=== PATIENT | female | born 1950 | race Caucasian/White ===

== ENCOUNTER → 2020-05-29 09:48 | Outpatient (CLI) | payer MEDICARE, SELFPAY ==
--- NOTE | ~2020-05-29 | MR_ITS ---
EXAMINATION: MR lumbar spine wo con EXAM DATE: 05/29/2020 10:50 INDICATION: Low back pain, bilateral leg pain. Left leg numbness. TECHNIQUE: Multi-sequential, multiplanar MR images of the lumbar spine were obtained without contrast . Sagittal T1, T2, T2 fat saturation images. Axial T2 weighted images. Comparison is made to prior examination from 06/10/2019. FINDINGS: There is 2 mm anterolisthesis L4 on L5. The vertebral bodies are otherwise aligned. Vertebr al body and disc heights are well-maintained. The conus medullaris terminates at the L1/2 level and h as normal signal intensity and morphology. There are no suspicious marrow signal abnormalities. Para spinal soft tissue is unremarkable. Level by level evaluation: T11-12: There is a minimal diffuse disc bulge. Facet arthropathy: Mild. Neural foraminal stenosis: No stenosis. Central canal stenosis: No stenosis. T12-L1: Disc does not extend beyond the endplate margin. Facet arthropathy: None. Neural foraminal stenosis: No stenosis. Central canal stenosis: No stenosis. L1-L2: Disc does not extend beyond the endplate margin. Facet arthropathy: Minimal. Neural foraminal stenosis: No stenosis. Central canal stenosis: No stenosis. L2-L3: There is a mild diffuse disc bulge. Facet arthropathy: Mild. Neural foraminal stenosis: No stenosis. Central canal stenosis: No stenosis. L3-L4: There is a mild diffuse disc bulge. Facet arthropathy: Minimal bilateral. Neural foraminal stenosis: No stenosis. Central canal stenosis: No stenosis. L4-L5: There is a mild diffuse disc bulge. Facet arthropathy: Mild to moderate. Neural foraminal stenosis: Mild bilateral. Central canal stenosis: Mild. L5-S1: There is a mild diffuse disc bulge. Facet arthropathy: Mild. Neural foraminal stenosis: No stenosis. Central canal stenosis: No stenosis. Difficult to appreciate any significant interval change compared to prior study. IMPRESSION: 1. Mild lumbar spondylosis. Reviewed, dictated and finalized at location B. IMPRESSION: 1. Mild lumbar spondylosis.
== END ==
PROVIDERS: PCP Family Medicine Adolescent Medicine; Visit Provider Nurse Practitioner Adult Health
DX: M47.26 Other spondylosis with radiculopathy, lumbar region (principal)
CPT/HCPCS: 72148

== ENCOUNTER 2020-07-09 00:47 | Outpatient (CLI) | payer MEDICARE, SELFPAY ==
[2020-07-09 18:01] LABS: SARS-CoV-2 RNA PCR Negative
== END 2020-07-09 00:48 | disposition home or self-care (01) ==
LOC: ANHCOVIDDT 00:47
PROVIDERS: PCP Family Medicine Adolescent Medicine; Visit Provider Internal Medicine Gastroenterology
DX: Z01.812 Encounter for preprocedural laboratory examination (principal); Z20.828 Contact with and (suspected) exposure to other viral communicable diseases
CPT/HCPCS: 87635; C9803; U0003

== ENCOUNTER 2020-07-11 01:42 | Day surgery (SDC) | payer MEDICARE, SELFPAY ==
[2020-07-04 14:55] VITALS: BMI 29.3
[2020-07-11 07:20] VITALS: BP 133/57; PULSE 66; RESP 16; TEMP 36.2; O2SAT 99
[2020-07-11] MEDS: LACTATED RINGERS 1,000 ML 150 ML IV CONT (07:48)
--- NOTE | 2020-07-11 08:03 | WPDGICN ---
Assessment and Plan Assessment and plan (1) Family history of colon cancer in mother: Code(s): Z80.0 - Family history of malignant neoplasm of digestive organs Status: Acute Assessment and Plan: Patient's mother has had colon cancer patient's.brother has had colon polyps. Plan is for surveillance colonoscopy now on a 5 year intervals in the future. (2) History of diverticulitis: Code(s): Z87.19 - Personal history of other diseases of the digestive system Status: Acute Assessment and Plan: Patient has a history of diverticulitis with fistula involving the uterus 2 years ago requiring surgical resection. currently healed. would recommend high-fiber diet this will be evaluated at time of endoscopy as well. GI Consult Note Consult date/time: 07/11/20 08:03 HPI: Malena Walters is a 69 year old female Seen in evaluation at the request of Dr. Saul exam room in period patient presents for neoplasia screening. Patient's current weight appetite bowel movements are normal. She denies abdominal pain. She has had no blood in her stools. Family history is significant that her mother had colon cancer. A sister has had colon polyps. Patient's recent history is significant that 2 years ago she under had diverticulitis with fistula to the uterus causing sigmoid resection and ultimate hysterectomy as well. She has recovered from this although does note occasional incisional pain or bowel habits are returned to normal. Review of Systems Review of Systems: All systems reviewed & are unremarkable except as noted in HPI and below PMFSH Past Medical History Medical History GERD (gastroesophageal reflux disease) History of diverticulitis History of stomach ulcers HTN (hypertension) Thyroid disease Surgical History Surgical History History of colectomy Family History Family History Mother Colon cancer Father Emphysema/COPD Sibling Heart disease Unknown Diabetes mellitus Social History Social History Smoking packs per day: 1 Smoking cigarettes per day: 20.0 Years smoked: 50 Smoking pack-years: 50.00 Smoking status: Former smoker Smoking end date: 10/12/15 Alcohol intake: never Living arrangements: alone Gender identity (if verbalized by the patient): Female Spiritual care concerns: No Meds Home Medications and Allergies Home Medications Medication Instructions Recorded Confirmed Type amlodipine 5 mg tablet 5 mg PO DAILY 10/19/19 07/11/20 History aspirin 81 mg tablet,delayed 81 mg PO DAILY 10/19/19 07/11/20 History release levothyroxine 75 mcg capsule 75 mcg PO DAILY 10/19/19 07/11/20 History pantoprazole 20 mg tablet,delayed 20 mg PO QAM 10/19/19 07/11/20 History release psyllium seed (sugar) 1 tbsp PO DAILY 10/19/19 07/11/20 History baclofen 20 mg PO HS 07/04/20 07/11/20 History Allergies Allergy/AdvReac Type Severity Reaction Status Date / Time gabapentin AdvReac Rash Verified 07/11/20 07:22 Vital Signs Vital Signs - 24 hr 07/11/20 07:20 Temperature 97.2 F L Pulse Rate 66 Respiratory Rate 16 Blood Pressure 133/57 L Pulse Oximetry 99 Exam Narrative: Exam Narrative: Physical exam reveals patient to be alert. Vital signs stable. HEENT exam unremarkable. Lungs are clear to auscultation and percussion. Heart is without murmur or extra sounds. Abdominal exam bowel sounds are present soft nontender with no organomegaly. Digital external rectal exam is normal.
--- NOTE | 2020-07-11 08:06 | WPDANESEPPF ---
Anes - Initial Pre Proc Eval Procedure: Operation Date: 07/11/20 08:30 Proposed Procedures p Screening Colonoscopy - Francisco Javier Arreaga MD Date/Time: 07/11/20 08:06 Surgeon: Francisco Javier Arreaga MD Pre Op Diagnosis: Family Hx of Colon CA Patient Data Age: 69 Gender: F Height: 4 ft 11 in Weight: 64.2 kg Last Vital Signs Temp 36.2 C L 07/11/20 07:20 Pulse 66 07/11/20 07:20 Resp 16 07/11/20 07:20 BP 133/57 L 07/11/20 07:20 Pulse Ox 99 07/11/20 07:20 Allergies Allergy/AdvReac Type Severity Reaction Status Date / Time gabapentin AdvReac Rash Verified 07/11/20 07:22 Home Medications Medication Instructions Recorded Confirmed Type amlodipine 5 mg tablet 5 mg PO DAILY 10/19/19 07/11/20 History aspirin 81 mg tablet,delayed 81 mg PO DAILY 10/19/19 07/11/20 History release levothyroxine 75 mcg capsule 75 mcg PO DAILY 10/19/19 07/11/20 History pantoprazole 20 mg tablet,delayed 20 mg PO QAM 10/19/19 07/11/20 History release psyllium seed (sugar) 1 tbsp PO DAILY 10/19/19 07/11/20 History baclofen 20 mg PO HS 07/04/20 07/11/20 History Patient hx anesthesia problems: none Family hx anesthesia problems: none PMFSH Past Medical History Medical History GERD (gastroesophageal reflux disease) History of diverticulitis History of stomach ulcers HTN (hypertension) Thyroid disease Surgical History Surgical History History of colectomy Family History Family History Mother Colon cancer Father Emphysema/COPD Sibling Heart disease Unknown Diabetes mellitus Social History Social History Smoking packs per day: 1 Smoking cigarettes per day: 20.0 Years smoked: 50 Smoking pack-years: 50.00 Smoking status: Former smoker Smoking end date: 10/12/15 Alcohol intake: never Living arrangements: alone Gender identity (if verbalized by the patient): Female Spiritual care concerns: No Anes - Eval Final PreProcedure Day of Procedure 07/11/20 08:06 Patient weight: overweight Heart: regular rate and rhythm Lungs: clear to auscultation Airway: Mallampati scale class II Neurological: alert and oriented Last oral intake: >/= 8 hours ASA classification: III Emergent: no Anesthetic plan: proceed Anesthesia type and monitoring: general GIVS and standard monitoring Informed Consent: The patient's anesthetic plan and its attendant risks and benefits were discussed with the patient/family/POA. Questions were solicited and answers provided to the satisfaction of the patient/family/POA.
[2020-07-11 08:55] VITALS: BP 113/44; PULSE 56; RESP 16; O2SAT 98
[2020-07-11 09:05] VITALS: BP 139/67; PULSE 54; RESP 16; O2SAT 98
[2020-07-11 09:15] VITALS: BP 128/70; PULSE 58; RESP 16; O2SAT 98
== END 2020-07-11 09:34 | disposition home or self-care (01) ==
PROVIDERS: PCP Family Medicine Adolescent Medicine; Visit Provider Internal Medicine Gastroenterology
PROC: 0DJD8ZZ Inspection of Lower Intestinal Tract, Via Natural or Artificial Opening Endoscopic (ICD-10-PCS; CPT 45378; principal; 2020-07-11 08:30)
DX: Z12.11 Encounter for screening for malignant neoplasm of colon (principal); Z80.0 Family history of malignant neoplasm of digestive organs; Z87.19 Personal history of other diseases of the digestive system; K21.9 Gastro-esophageal reflux disease without esophagitis; I10 Essential (primary) hypertension; E07.9 Disorder of thyroid, unspecified; Z87.891 Personal history of nicotine dependence; Z90.49 Acquired absence of other specified parts of digestive tract; K64.8 Other hemorrhoids; Z98.0 Intestinal bypass and anastomosis status
CPT/HCPCS: G0105; J2704; J7120

== ENCOUNTER 2020-09-26 16:07 | Outpatient (CLI) | payer MEDICARE, SELFPAY ==
--- NOTE | ~2020-09-26 | CT_ITS ---
EXAMINATION: CT abdomen pelvis wo con DATE: 09/26/2020 16:36 INDICATION: Abdominal aortic aneurysm TECHNIQUE: Computed tomography (CT) of the abdomen and pelvis was performed without intravenous contr ast. Automated exposure control and iterative reconstruction technique were employed. Exam dose: 403 .74 mGy-cm total exam DLP. COMPARISON: 10/13/2019 CTA abdomen pelvis FINDINGS: Mild discoid atelectasis or scarring of the lingula and left lower lobe. Minimal infiltrate or atelectasis in the dependent right lower lobe. The included lower lung zones are clear of infiltr ate or consolidation otherwise. Normal heart size. Trace pericardial fluid. No pleural effusion. The liver, gallbladder, bile ducts, spleen, pancreas, adrenal glands and kidneys are unremarkable on this limited noncontrast examination. There is a fusiform infrarenal abdominal aortic aneurysm measuring up to approximately 4.2 cm maximal diameter, compared to 4.1 cm on 10/13/2019. There is extensive calcification of the abdominal aorta and particularly iliac arteries in addition t o mild bilateral renal artery calcification. No intraperitoneal or retroperitoneal or pelvic mass lesion or adenopathy or ascites is detected. Duodenal diverticulum is again noted. Normal appendix. No evidence of appendicitis. There is a suture line of the sigmoid colon. No bowel obstruction, bowel wall thickening, pneumatosis or intraperitoneal free air. The urinary bladder is evacuated. Status post hysterectomy. Diffuse osteopenia. No suspicious osteolytic or osteoblastic lesions. IMPRESSION: Fusiform infrarenal abdominal aortic aneurysm measuring up to approximately 4.2 cm maxim al diameter, compared to 4.1 cm on 10/13/2019 Reviewed, dictated and finalized at Location [facility]. Reviewed, dictated and finalized at location B. RADIAL DRILL PRESS SET UP OPERATOR IMPRESSION: Fusiform infrarenal abdominal aortic aneurysm measuring up to appr oximately 4.2 cm maximal diameter, compared to 4.1 cm on 10/13/2019
== END 2020-09-26 16:08 | disposition home or self-care (01) ==
PROVIDERS: PCP Family Medicine Adolescent Medicine; Visit Provider Specialist
DX: I71.3 Abdominal aortic aneurysm, ruptured (principal)
CPT/HCPCS: 74176

== ENCOUNTER 2020-10-21 17:25 | Inpatient (IN) | payer MEDICARE, SELFPAY ==
[2020-10-21] VITALS (8 sets, daily range): BP systolic 125–143; BP diastolic 55–83; PULSE 67–78; RESP 18–28; TEMP 37.6–38.8; O2SAT 90–98
--- NOTE | ~2020-10-21 | XR_ITS ---
EXAMINATION: XR chest 1V portable DATE: 10/21/2020 18:01 INDICATION: Cough. Chest pain. COVID-19 positive. TECHNIQUE: A single frontal view of the chest was obtained. COMPARISON: Chest 2 views 03/26/2015 FINDINGS: There are patchy airspace opacities in all lung zones bilaterally. No pleural effusion or p neumothorax. The heart size is normal. IMPRESSION: 1. Diffuse lung disease, consistent with COVID-19 pneumonia. Reviewed, dictated and finalized at location A. TELLER
--- NOTE | ~2020-10-21 | CT_ITS ---
EXAMINATION: CTA chest PE protocol DATE: 10/21/2020 20:00 INDICATION: Shortness of breath. COVID-19 pneumonia. TECHNIQUE: Computed tomography angiography (CTA) of the chest was performed with 100 mL Omnipaque-350 intravenous contrast timed to evaluate the pulmonary arteries. Coronal maximum intensity projection 3D-reconstructions were created by the technologist. Automated exposure control and iterative reconst ruction technique were employed. The dose-length product was 270.90 mGy-cm. COMPARISON: CT abdomen and pelvis 09/26/2020 FINDINGS: There are patchy groundglass and airspace opacities associated with septal thickening in al l lobes with a peripheral predominance. No pleural effusion. The heart size is normal. No pericardial effusion. There are coronary artery calcifications. Calcified left hilar and periportal lymph nodes are consistent with old granulomatous disease. There is no pulmonary embolus. There is mild thoracic spondylosis. IMPRESSION: 1. No pulmonary embolus. 2. Diffuse lung disease, consistent with COVID-19 pneumonia. Reviewed, dictated and finalized at location A. ILE TECHNICIAN
--- NOTE | 2020-10-21 17:40 | ED.URI ---
HPI - URI/Sore Throat General Chief Complaint: Upper Respiratory Infection Stated Complaint: CP after coughing; covid + 14 days ago Time Seen by Provider: 10/21/20 17:33 Source: patient Mode of arrival: ambulatory Limitations: no limitations History of Present Illness HPI Narrative: Patient 70-year-old female who presents for continued fevers and cough and chest discomfort with coughing has been sick with Covid for 14 days is not getting better per patient has family who is also sick patient denies vomiting or diarrhea. On arrival patient in no distress resting comfortably in the room symptoms worse with activity is followed by Dr. Chaney Related Data Home Medications Medication Instructions Recorded Confirmed amlodipine 5 mg tablet 5 mg PO DAILY 10/19/19 07/11/20 aspirin 81 mg tablet,delayed 81 mg PO DAILY 10/19/19 07/11/20 release levothyroxine 75 mcg capsule 75 mcg PO DAILY 10/19/19 07/11/20 pantoprazole 20 mg tablet,delayed 20 mg PO QAM 10/19/19 07/11/20 release psyllium seed (sugar) oral powder 1 tbsp PO DAILY 10/19/19 07/11/20 baclofen 20 mg PO HS 07/04/20 07/11/20 Allergies Allergy/AdvReac Type Severity Reaction Status Date / Time gabapentin AdvReac Rash Verified 10/21/20 18:52 Review of Systems Review of Systems: All systems reviewed & are unremarkable except as noted in HPI and below PMFSH Past Medical History Medical History (Updated 10/21/20 @ 21:19 by Chinedu Vega PA-C) GERD (gastroesophageal reflux disease) History of diverticulitis History of stomach ulcers HTN (hypertension) Thyroid disease Surgical History Surgical History History of colectomy Family History Family History Mother Colon cancer Father Emphysema/COPD Sibling Heart disease Unknown Diabetes mellitus Social History Social History Smoking packs per day: 1 Smoking cigarettes per day: 20.0 Years smoked: 50 Smoking pack-years: 50.00 Smoking status: Former smoker Smoking end date: 10/12/15 Alcohol intake: never Gender identity (if verbalized by the patient): Female Spiritual care concerns: No Exam Narrative: Exam Narrative: GENERAL: Ill-appearing, well-nourished, and in no acute distress. HEAD: Normocephalic, atraumatic. EYES: PERRLA and EOMI. ENT: Nares clear, no rhinorrhea or epistaxis. Mucous membranes moist. CHEST: Diminished on auscultation. No respiratory distress. Crackles in the lung epperson HEART: Regular rate and rhythm. No murmur heard. Normal peripheral pulses. ABDOMEN: Soft, nontender, nondistended EXTREMITIES: Normal range of motion. No edema. SKIN: Warm, dry, no rash. NEURO: No focal deficits. Alert and oriented x3. PSYCH: Normal mood and affect. Course Course Emergency Course: Patient will be brought into the hospital for hypoxemia and Covid pneumonia will be covered with antibiotics for consideration of superimposed bacterial pneumonia patient is on the 14th day of her illness patient agreeing to stay in hospital patient hydrated will be given antibiotics and steroids and followed by the hospitalist service patient was placed on oxygen for hypoxemia patient had oxygen saturation of 88 on room air resting. ABCs intact and stable Consultations Consultation #1: Discussed case with hospitalist who would like the patient to be covered for antibiotics and to be given steroids and placed on medical telemetry floor discussed case with Dr. Campbell Date: 10/21/20 Time: 21:11 Vital Signs Vital signs: Vital Signs Temperature 99.6 F 10/21/20 17:23 Pulse Rate 70 10/21/20 17:23 Respiratory Rate 21 H 10/21/20 17:23 Blood Pressure 137/63 10/21/20 17:23 Pulse Oximetry 98 10/21/20 17:23 Temperature 101.9 F H 10/21/20 19:12 Pulse Rate 71 10/21/20 20:41 Respiratory Rate 28 H 10/21/20 20:41
[2020-10-21] MEDS: SODIUM CHLORIDE 0.9% IV 1,000 ML 999 ML IV CONT (18:23)
[2020-10-21 18:29] LABS: Hematocrit 32.2 % (37.0-47.0); Hemoglobin 10.1 g/dL (12.0-15.0); Immature Granulocyte Absolute 0.02 K/mm3 (0.00-0.031); Immature Granulocyte Percent A 0.4 % (0-0.5); Lymphocytes Absolute Auto 0.64 K/mm3 (0.9-3.2); Lymphocytes Percent Auto 12.2 % (18.3-44.2); Mean Corpuscular HGB Conc 31.4 g/dl (32-36); Mean Corpuscular Hemoglobin 22.6 pg (26-34); Mean Platelet Volume 10.7 fl (7.4-10.4); Monocytes Absolute Auto 0.2 K/mm3 (0.1-0.6); Monocytes Percent Auto 4.2 % (2.6-8.5); Neutrophils Absolute Auto 4.4 K/mm3 (1.3-6.7); Neutrophils Percent Auto 83.2 % (45.5-73.1); Platelet Count Result 237 k/mm3 (150-375); Red Blood Count 4.47 M/mm3 (4.2-5.4); Red Cell Distribution Width 20.6 % (11.5-14.5); White Blood Count 5.2 K/mm3 (4.5-10.0)
[2020-10-21 18:39] LABS: INR 0.9; Prothrombin Time 12.9 Seconds (11.1-14.7)
[2020-10-21 18:40] LABS: Partial Thromboplastin Time 35.4 SECONDS (22.3-36.8)
[2020-10-21 18:46] LABS: Alanine Aminotransferase 43 U/L (4-35); Albumin Level 3.3 g/dL (3.5-5.1); Alkaline Phosphatase 66 U/L (38-126); Anion Gap 6 mmol/L (8-16); Aspartate Amino Transferase 61 U/L (14-36); Bilirubin,Total 0.5 mg/dL (0.2-1.3); Blood Urea Nitrogen 12 mg/dL (7-17); Calcium 7.8 mg/dL (8.4-10.2); Carbon Dioxide 28 mmol/L (22-30); Chloride 101 mmol/L (98-107); Estimated CRCL calculation 47 ml/min; Estimated Glomerular Filt Rate > 60; Glucose 103 mg/dL (65-105); Lactic Acid Reflex 1.3 mmol/L (0.7-2.1); Lipase 129 U/L (23-300); Potassium 3.5 mmol/L (3.4-5.0); Sodium 135 mmol/L (137-145)
--- NOTE | 2020-10-21 18:47 | PC.NURSE ---
Pharmacy called and asked to send IV tylenol dose in tube system
[2020-10-21 18:56] LABS: Troponin I < 0.012 ng/mL (0.000-0.034)
[2020-10-21 19:05] LABS: Alveolar/Arterial O2 Gradient 57.9 mmHg; Base Excess ABG -2.1 mEq/l (+/-2.0); Carboxyhemoglobin 0.5 % THb (0-2.0); Fractional Inspired Oxygen 21 %; HCO3 ABG 20.2 mEq/l (22.0-26.0); Methemoglobin ABG 0.3 %THb (0-1.5); Oxygen Content ABG 12.3 %vol (16.0-22.0); Oxygen Saturation ABG 93.6 % (95.0-100.0); Oxyhemoglobin 90.7 % THb (90.0-100.0); PCO2 ABG 26.3 mmHg (35.0-45.0); PO2 ABG 60.3 mmHg (80.0-100.0); PO2 FiO2 Ratio Arterial Blood 2.87 %; Reduced Hemoglobin 8.5 %THb (0-5.0); Total Hemoglobin 9.6 g/dL (12.0-18.0); pH ABG 7.503 (7.350-7.450)
[2020-10-21 19:06] LABS: Device ROOM AIR; Site Drawn LEFT BRACHIAL
[2020-10-21 19:15] LABS: CRP 20.4 mg/dL (<1.0)
--- NOTE | 2020-10-21 20:33 | PC.NURSE ---
pt placed on 2L via mds verbal orders.
--- NOTE | 2020-10-21 20:46 | ECG_ITS ---
Measurements Intervals [place] Rate: 0 P: WI: 0 QRS: QRSD: 0 T: QT: 0 QTc: 0 Interpretive Statements SINUS RHYTHM INCOMPLETE RIGHT BUNDLE BRANCH BLOCK BASELINE WANDER- I, II, AVR, AVL, AVF, V1-V6 BORDERLINE ECG Electronically Signed On 10-22-2020 7:13:33 WET PROCESS OPERATOR by Gunnar Walker D.O.
[2020-10-21 21:22] LABS: Add Urine Microscopic? YES; Appearance Urine Clear (Clear); Bacteria Urine Trace /hpf; Bilirubin Urine Negative (Negative); Blood Urine Negative (Negative); Color Urine Yellow (Yellow); Glucose Urine UA Negative (Negative); Ketones Urine Negative (Negative); Leukocyte Esterase Ur Negative LEU/UL (Negative); Mucus Urine Rare /lpf; Nitrate Urine Negative (Negative); Protein Urine 1+ mg/dL (Negative); RBC Urine 0-2 /hpf (0-2); Specific Grav Ur 1.015 (1.001-1.035); Squamous Epithelial Cell Urine Rare /hpf (Few); Urobilinogen Urine Negative mg/dL (<2.0); WBC Urine 0-3 /hpf
[2020-10-21] MEDS: LACTATED RINGERS 1,000 ML 75 ML IV CONT (23:19)
[2020-10-22] VITALS (11 sets, daily range): BP systolic 105–149; BP diastolic 42–76; PULSE 58–79; RESP 18–20; TEMP 36.5–37.2; O2SAT 92–97
--- NOTE | 2020-10-22 01:14 | ADMGEN ---
This patient, Malena Walters, was admitted to [facility] Surg Room 311-01. Patient/family oriented to hospital policies and general routines including ID bracelet, bed and alarms, visiting hours, pain management, procedures, bathroom and other care routines, personal items, smoking policy, room service/diet, and visiting hours. Information on how to activate the Rapid Response Team has been discussed. Patient/Family are encouraged to report perceived risks to care and to ask questions if they do not understand what they are told or what they should do.
--- NOTE | 2020-10-22 03:48 | PM.IMHP ---
H&P: HPI History of Present Illness Date/Time: 10/22/20 05:00 Chief Complaint: COVID symptoms are worse Narrative: Malena Walters is a 70 year old female with a past medical history of hypothyroidism, GERD and hypertension who presented to the ER from home due to persistent symptoms associated with her COVID infection. The patient reports cough with pleuritic chest pain. She has been having fevers with her T-max in the ER 101.9. The patient's fever improved with 3 extra-strength Tylenol. However, her pleuritic pain is unrelieved despite Tylenol. She has been ill for 14 days and her symptoms continued to worsen. Her daughter's symptoms have improved. Borderline hypoxic in the ER with oxygen saturations of 88-90%. She has had generalized fatigue and weakness. She reports myalgias. She thinks that she got COVID at her work. She still works at [email or web address] 3 days a week. Her daughter is also positive for COVID but she thinks that she gave the infection to her daughter. Review of Systems Review of Systems: Narrative: 12 systems were reviewed with pertinent positives and negatives per HPI. Except as documented in the HPI, all other systems were reviewed and are negative. [facility] Past Medical History Medical History (Updated 10/22/20 @ 04:01 by Geovanna Campbell DO) GERD (gastroesophageal reflux disease) History of diverticulitis History of stomach ulcers HTN (hypertension) Thyroid disease Surgical History Surgical History History of colectomy Family History Family History Mother Colon cancer Father Emphysema/COPD Sibling Heart disease Unknown Diabetes mellitus Social History Social History (Updated 10/22/20 @ 07:06 by Geovanna Campbell DO) Social History: She is independent in activities of daily living. She still works at [email or web address] 3 days a week. She is a former smoker and smoked 1 pack per day for 50 years but quit smoking in 2016. She rarely drinks alcohol and only in moderation. She denies illicit substance use. She has been for 26 years. Primary care physician: Dr. Kg Chaney Code status: Full code Surrogate decision maker: Roxane (daughter) Smoking packs per day: 1 Smoking cigarettes per day: 20.0 Years smoked: 50 Smoking pack-years: 50.00 Smoking status: Former smoker Tobacco type: cigarettes Smoking end date: 10/12/15 Alcohol intake: never Substance use: never Gender identity (if verbalized by the patient): Female Spiritual care concerns: No Meds Home Medications and Allergies Home Medications Medication Instructions Recorded Confirmed Type aspirin 81 mg tablet,delayed 81 mg PO DAILY 10/19/19 10/22/20 History release levothyroxine 75 mcg capsule 75 mcg PO DAILY 10/19/19 10/22/20 History pantoprazole 20 mg tablet,delayed 20 mg PO QAM 10/19/19 10/22/20 History release diltiazem HCl [Cartia XT] 240 mg PO DAILY 10/22/20 10/22/20 History Allergies Allergy/AdvReac Type Severity Reaction Status Date / Time gabapentin AdvReac Rash Verified 10/21/20 18:52 Vital Signs Vital Signs - 24 hr 10/21/20 17:23 10/21/20 18:06 10/21/20 18:22 Temperature 99.6 F 101.5 F H Pulse Rate 70 74 Respiratory Rate 21 H 22 H Blood Pressure 137/63 137/83 Pulse Oximetry 98 95 97 10/21/20 19:12 10/21/20 20:33 10/21/20 20:41 Temperature 101.9 F H Pulse Rate 78 76 71 Respiratory Rate 24 H 18 28 H Blood Pressure 137/83 125/55 L Pulse Oximetry 98 90 94 10/21/20 22:24 10/21/20 22:44 10/22/20 00:00 Temperature 99.6 F 98.4 F Pulse Rate 69 67 58 L Respiratory Rate 20 18 20 Blood Pressure 143/71 H 140/79 134/55 L Pulse Oximetry 94 96 94 Exam Narrative: Exam Narrative: PHYSICAL EXAM: WEIGHT 66.1 kg BMI 28.5 General: Well-developed, well-nourished, no acute distress HEENT: Mucous membranes are moist, no oral pharyngeal e
[2020-10-22] MEDS: LEVOTHYROXINE SODIUM 75 MCG TABLET PO (06:03)
[2020-10-22 06:58] LABS: Hematocrit 30.6 % (37.0-47.0); Hemoglobin 9.7 g/dL (12.0-15.0); Immature Granulocyte Absolute 0.03 K/mm3 (0.00-0.031); Immature Granulocyte Percent A 0.7 % (0-0.5); Lymphocytes Percent Auto 21.9 % (18.3-44.2); Mean Corpuscular HGB Conc 31.7 g/dl (32-36); Mean Corpuscular Hemoglobin 22.8 pg (26-34); Mean Corpuscular Volume 71.8 fl (80-100); Mean Platelet Volume 10.2 fl (7.4-10.4); Monocytes Absolute Auto 0.2 K/mm3 (0.1-0.6); Monocytes Percent Auto 5.1 % (2.6-8.5); Neutrophils Percent Auto 72.3 % (45.5-73.1); Platelet Count Result 205 k/mm3 (150-375); Red Blood Count 4.26 M/mm3 (4.2-5.4); Red Cell Distribution Width 20.5 % (11.5-14.5); White Blood Count 4.1 K/mm3 (4.5-10.0)
[2020-10-22 07:15] LABS: Anion Gap 7 mmol/L (8-16); Blood Urea Nitrogen 8 mg/dL (7-17); Calcium 7.5 mg/dL (8.4-10.2); Carbon Dioxide 25 mmol/L (22-30); Chloride 106 mmol/L (98-107); D Dimer 1.32 ug/mL (<0.48); Estimated CRCL calculation 53 ml/min; Estimated Glomerular Filt Rate > 60; Glucose 98 mg/dL (65-105); Potassium 3.1 mmol/L (3.4-5.0); Sodium 138 mmol/L (137-145)
[2020-10-22 07:48] LABS: CRP 18.9 mg/dL (<1.0)
[2020-10-22] MEDS: ALBUTEROL SULFATE (*SP) AEROSOL 1 PUFF 4 PUFF INHALATION ×4 (08:09→21:31)
[2020-10-22] MEDS: ALBUTEROL SULFATE (*SP) INHALER 1 PUFF (08:09)
[2020-10-22] MEDS: POTASSIUM CHLORIDE 20 MEQ TABLET 40 MEQ PO (09:58)
[2020-10-22] MEDS: ASPIRIN 81 MG ENTERIC TABLET PO (09:58)
[2020-10-22] MEDS: DEXAMETHASONE SOD PHOS INJ 4 MG/ML VIAL 6 MG IV PUSH (09:59)
[2020-10-22] MEDS: PANTOPRAZOLE SOD SESQUIHYDRATE 20 MG TAB PO (10:00)
[2020-10-22] MEDS: FAMOTIDINE 20 MG/2 ML VIAL IV PUSH ×2 (10:00→21:36)
[2020-10-22] MEDS: ENOXAPARIN 40 MG/0.4 ML SYRINGE SUB-Q ×2 (10:50→21:35)
[2020-10-22 10:52] LABS: Lactate Dehydrogenase 773 U/L (313-618)
--- NOTE | 2020-10-22 12:59 | PM.IMPN ---
Progress Note: A&P Assessment and Plan (1) Pneumonia due to 2019 novel coronavirus: Code(s): U07.1 - COVID-19; J12.82 - Pneumonia due to coronavirus disease 2019 Status: Acute Assessment and Plan: she tested positive for COVID-19 on 10/08/2020 with symptom onset >14 days ago. She has been febrile with T-max 101.9?. she continues to endorse chest tightness and cough. She is requiring 2 L O2 per nasal cannula. CXR and CTA with findings of diffuse lung disease consistent with COVID-19. Continue isolation precautions Will proceed with trial of IV dexamethasone. Patient is beyond 10 day window, however symptoms are persistent and inflammatory markers are elevated. Continue with IV Rocephin and azithromycin as secondary bacterial pneumonia is considered given extended duration of symptoms. Obtain sputum culture. Check urinary legionella and pneumococcal antigens Supplemental oxygen as needed with goal saturation 92% or above. Supportive care to include bronchodilators, expectorants, and antipyretics as needed. Trend acute phase reactants (2) Hypoxemia: Code(s): R09.02 - Hypoxemia Status: Acute Assessment and Plan: No documented episodes of hypoxia, however noted in documentation that patient became hypoxic down to 88% while in the emergency department. This is secondary to COVID-19 pneumonia. She is currently maintaining adequate saturations on 2 L O2 per nasal cannula. Supplemental O2 will be continue with goal saturation 90% or above. Wean oxygen to goal. (3) Sepsis: Qualifiers: Sepsis type: sepsis due to unspecified organism Sepsis acute organ dysfunction status: with acute organ dysfunction Severe sepsis acute organ dysfunction type: acute respiratory failure Acute respiratory failure type: with hypoxia Severe sepsis shock status: without septic shock Qualified Code(s): A41.9 - Sepsis, unspecified organism; R65.20 - Severe sepsis without septic shock; J96.01 - Acute respiratory failure with hypoxia Code(s): A41.9 - Sepsis, unspecified organism Status: Acute Assessment and Plan: Patient criteria for sepsis upon presentation with persistent fever and tachypnea in the setting of known COVID pneumonia. based on duration of symptoms, there is concern for secondary bacterial pneumonia as noted above. She is mildly leukopenic. Vital signs are stable. Blood cultures pending Will attempt collection of sputum culture. continue with IV antibiotics as described above monitor vital signs closely Follow CBC (4) HTN (hypertension): Code(s): I10 - Essential (primary) hypertension Status: Acute Assessment and Plan: blood pressure evaluated today and is stable at 140/57. Continue Cardizem monitor blood pressures daily (5) Hypothyroidism: Code(s): E03.9 - Hypothyroidism, unspecified Status: Acute Assessment and Plan: continue levothyroxine check TSH Subjective Date/time seen: 10/22/20 12:59 Interval history: Date of service: 10/22/2020 Malena Walters is a 70-year-old female with a history of diverticulitis, PUD, hypertension, and COVID-19 pneumonia (tested positive 10/08/2020) who is seen in follow-up for worsened COVID symptoms. Today, her biggest concern is her cough. She endorses chest tightness only with coughing and some pleuritic chest pain. Her cough is nonproductive but she does feel chest congestion. No wheezing. She is endorsing poor appetite. She feels a bit weaker. She denies dizziness or lightheadedness. She denies fevers or chills. She denies abdominal pain, nausea, vomiting. Having regular bowel movements, no diarrhea. Denies urinary symptoms. Not sleeping well. Review of Systems Review of Systems: All systems reviewed & are unremarkable except as noted in HPI and below Exam Narrative: Exam Narrative: Ms. Walters is a well-nourished, well-appearing 70-ye
[2020-10-22] MEDS: guaiFENesin 12 HR 600 MG TABCR PO ×2 (15:43→21:36)
[2020-10-22] MEDS: LORazepam (*CRX) 1 MG TABLET PO (23:28)
[2020-10-23] VITALS (8 sets, daily range): BP systolic 136–150; BP diastolic 58–76; PULSE 61–74; RESP 18–20; TEMP 36.3–36.8; O2SAT 90–100
[2020-10-23] MEDS: LEVOTHYROXINE SODIUM 75 MCG TABLET PO (05:51)
[2020-10-23 06:24] LABS: Hematocrit 30.1 % (37.0-47.0); Hemoglobin 9.3 g/dL (12.0-15.0); Immature Granulocyte Absolute 0.05 K/mm3 (0.00-0.031); Immature Granulocyte Percent A 1.3 % (0-0.5); Lymphocytes Absolute Auto 0.45 K/mm3 (0.9-3.2); Mean Corpuscular HGB Conc 30.9 g/dl (32-36); Mean Corpuscular Hemoglobin 22.4 pg (26-34); Mean Corpuscular Volume 72.4 fl (80-100); Mean Platelet Volume 10.7 fl (7.4-10.4); Monocytes Absolute Auto 0.2 K/mm3 (0.1-0.6); Monocytes Percent Auto 5.9 % (2.6-8.5); Neutrophils Percent Auto 80.8 % (45.5-73.1); Platelet Count Result 264 k/mm3 (150-375); Red Blood Count 4.16 M/mm3 (4.2-5.4); Red Cell Distribution Width 20.7 % (11.5-14.5); White Blood Count 3.8 K/mm3 (4.5-10.0)
[2020-10-23 06:47] LABS: Anion Gap 5 mmol/L (8-16); Blood Urea Nitrogen 11 mg/dL (7-17); Carbon Dioxide 26 mmol/L (22-30); Chloride 107 mmol/L (98-107); Estimated CRCL calculation 61 ml/min; Estimated Glomerular Filt Rate > 60; Glucose 148 mg/dL (65-105); Potassium 3.8 mmol/L (3.4-5.0); Sodium 138 mmol/L (137-145)
[2020-10-23 07:01] LABS: Lactate Dehydrogenase 841 U/L (313-618)
[2020-10-23 07:22] LABS: Thyroid Stimulating Hormone Reflex 0.509 uIU/mL (0.465-4.68)
[2020-10-23] MEDS: ALBUTEROL SULFATE (*SP) AEROSOL 1 PUFF 4 PUFF INHALATION ×4 (10:00→20:30)
[2020-10-23] MEDS: FAMOTIDINE 20 MG/2 ML VIAL IV PUSH ×2 (10:30→20:07)
[2020-10-23] MEDS: PANTOPRAZOLE SOD SESQUIHYDRATE 20 MG TAB PO (10:30)
[2020-10-23] MEDS: ASPIRIN 81 MG ENTERIC TABLET PO (10:30)
[2020-10-23] MEDS: DEXAMETHASONE SOD PHOS INJ 4 MG/ML VIAL 6 MG IV PUSH (11:32)
[2020-10-23] MEDS: guaiFENesin 12 HR 600 MG TABCR PO ×2 (11:35→20:07)
[2020-10-23] MEDS: ENOXAPARIN 40 MG/0.4 ML SYRINGE SUB-Q ×2 (13:56→20:07)
--- NOTE | 2020-10-23 15:49 | PM.IMPN ---
Progress Note: A&P Assessment and Plan (1) Pneumonia due to 2019 novel coronavirus: Code(s): U07.1 - COVID-19; J12.82 - Pneumonia due to coronavirus disease 2019 Status: Acute Assessment and Plan: She tested positive for COVID-19 on 10/08/2020 with symptom onset >14 days ago. She was febrile with Tmax 101.9? 10/21/20 but fevers have subsided since initiation of IV antibiotics. She feels much better overall. CXR and CTA with findings of diffuse lung disease consistent with COVID-19. She was weaned to room air yesterday. Continue isolation precautions Continue IV dexamethasone (day 2 - initiated 10/22/20). Patient is beyond 10 day window, however symptoms are persistent and inflammatory markers are elevated. She has noticed significant improvement and feels much better overall. Continue with IV Rocephin and azithromycin as secondary bacterial pneumonia is considered given extended duration of symptoms. Sputum culture ordered but has not been obtained given minimal sputum production. Urine legionella and pneumococcal antigens are pending. Continue supplemental oxygen as needed with goal saturation 92% or above. Supportive care to include bronchodilators, expectorants, and antipyretics as needed. Trend acute phase reactants Hopeful discharge tomorrow if she remains on room air and continues to improve (2) Hypoxemia: Code(s): R09.02 - Hypoxemia Status: Acute Assessment and Plan: No documented episodes of hypoxia, however noted in documentation that patient became hypoxic down to 88% while in the emergency department. This is secondary to COVID-19 pneumonia. She was requiring 2 liters O2 per nasal cannula but was weaned to room air 10/22/20. Continue supplemental O2 as needed with goal saturation 90% or above. Wean oxygen to goal. (3) Sepsis: Qualifiers: Acute respiratory failure type: with hypoxia Sepsis acute organ dysfunction status: with acute organ dysfunction Sepsis type: sepsis due to unspecified organism Severe sepsis acute organ dysfunction type: acute respiratory failure Severe sepsis shock status: without septic shock Qualified Code(s): A41.9 - Sepsis, unspecified organism; R65.20 - Severe sepsis without septic shock; J96.01 - Acute respiratory failure with hypoxia Code(s): A41.9 - Sepsis, unspecified organism Status: Acute Assessment and Plan: Patient met criteria for sepsis upon presentation with persistent fever and tachypnea in the setting of known COVID pneumonia. based on duration of symptoms, there is concern for secondary bacterial pneumonia as noted above. She is mildly leukopenic. Vital signs are stable. Preliminary blood cultures demonstrate NGTD Sputum cultures were ordered but have not been collected since sputum production is minimal Continue with IV antibiotics as described above Monitor vital signs closely Follow CBC (4) HTN (hypertension): Code(s): I10 - Essential (primary) hypertension Status: Acute Assessment and Plan: Blood pressure was evaluated today and acceptable. Most recent BP 150/76. Continue cardizem Monitor blood pressures daily (5) Hypothyroidism: Code(s): E03.9 - Hypothyroidism, unspecified Status: Acute Assessment and Plan: TSH is 0.59. Continue levothyroxine (6) Hemorrhoids: Code(s): K64.9 - Unspecified hemorrhoids Status: Acute Assessment and Plan: Add preparation H for hemorrhoid discomfort. Subjective Date/time seen: 10/23/20 15:49 Mrs. Walters is a 70 y.o. female with PMH significant for diverticulitis, PUD, hypertension, and COVID-19 pneumonia (tested positive 10/08/2020) who is seen in follow-up suspected superimposed bacterial pneumonia. She feels much better overall today. She was weaned to room air with pulse oxygenation of 100%. She denies dyspnea and chest pain. She reports that she is still havin
[2020-10-23] MEDS: LORazepam (*CRX) 1 MG TABLET PO (20:08)
[2020-10-24] VITALS (11 sets, daily range): BP systolic 118–182; BP diastolic 50–88; PULSE 63–86; RESP 18; TEMP 36.4–36.9; O2SAT 86–96
[2020-10-24] MEDS: cloNIDine HCL 0.1 MG TABLET PO (03:45)
[2020-10-24] MEDS: LEVOTHYROXINE SODIUM 75 MCG TABLET PO (05:42)
[2020-10-24 06:37] LABS: Basophils Percent Auto 0.1 % (0.2-1.2); Hemoglobin 9.1 g/dL (12.0-15.0); Immature Granulocyte Absolute 0.12 K/mm3 (0.00-0.031); Immature Granulocyte Percent A 1.7 % (0-0.5); Lymphocytes Percent Auto 9.8 % (18.3-44.2); Mean Corpuscular HGB Conc 30.3 g/dl (32-36); Mean Corpuscular Hemoglobin 21.8 pg (26-34); Mean Corpuscular Volume 71.9 fl (80-100); Mean Platelet Volume 10.3 fl (7.4-10.4); Monocytes Absolute Auto 0.3 K/mm3 (0.1-0.6); Monocytes Percent Auto 4.3 % (2.6-8.5); Neutrophils Percent Auto 84.1 % (45.5-73.1); Platelet Count Result 281 k/mm3 (150-375); Red Blood Count 4.17 M/mm3 (4.2-5.4); Red Cell Distribution Width 20.7 % (11.5-14.5); White Blood Count 7.1 K/mm3 (4.5-10.0)
[2020-10-24 07:01] LABS: Alanine Aminotransferase 56 U/L (4-35); Albumin Level 3.3 g/dL (3.5-5.1); Alkaline Phosphatase 75 U/L (38-126); Anion Gap 9 mmol/L (8-16); Aspartate Amino Transferase 70 U/L (14-36); Bilirubin,Total 0.4 mg/dL (0.2-1.3); Blood Urea Nitrogen 17 mg/dL (7-17); CRP 3.9 mg/dL (<1.0); Calcium 8.2 mg/dL (8.4-10.2); Carbon Dioxide 25 mmol/L (22-30); Chloride 106 mmol/L (98-107); Creatine Kinase 163 U/L (30-135); Estimated CRCL calculation 53 ml/min; Estimated Glomerular Filt Rate > 60; Glucose 137 mg/dL (65-105); Lactate Dehydrogenase 831 U/L (313-618); Magnesium 2.2 mg/dL (1.6-2.3); Potassium 3.5 mmol/L (3.4-5.0); Sodium 140 mmol/L (137-145)
[2020-10-24] MEDS: DEXAMETHASONE SOD PHOS INJ 4 MG/ML VIAL 6 MG IV PUSH (08:15)
[2020-10-24] MEDS: ASPIRIN 81 MG ENTERIC TABLET PO (08:15)
[2020-10-24] MEDS: FAMOTIDINE 20 MG/2 ML VIAL IV PUSH (08:16)
[2020-10-24] MEDS: ENOXAPARIN 40 MG/0.4 ML SYRINGE SUB-Q (08:17)
[2020-10-24] MEDS: PANTOPRAZOLE SOD SESQUIHYDRATE 20 MG TAB PO (08:18)
[2020-10-24] MEDS: PHENYLEPH/SHARK OIL/MO/PETROL CREAM 26 GM 1 APPLIC RECTAL (08:18)
[2020-10-24] MEDS: guaiFENesin 12 HR 600 MG TABCR PO (08:18)
[2020-10-24] MEDS: ALBUTEROL SULFATE (*SP) AEROSOL 1 PUFF 4 PUFF INHALATION ×2 (08:19→12:30)
[2020-10-24 08:30] LABS: Iron 40 ug/dL (37-170)
[2020-10-24 08:41] LABS: Percent Iron Saturation 13 % (20-50)
[2020-10-24 08:44] LABS: Transferrin 224 mg/dL (206-381)
[2020-10-24 09:35] LABS: Folic Acid 9.1 ng/mL (2.76->20)
--- NOTE | 2020-10-24 14:21 | PM.DS ---
DS: Admitting Diagnosis Admitting Diagnosis Admitting Diagnosis: COVID-19 pneumonia with secondary bacterial pneumonia DS: Discharge Diagnosis Discharge Diagnosis (1) Pneumonia due to 2019 novel coronavirus: Code(s): U07.1 - COVID-19; J12.82 - Pneumonia due to coronavirus disease 2019 Status: Acute Assessment and Plan: She tested positive for COVID-19 on 10/08/2020 with symptom onset >14 days prior to admission. She was treated with IV azithromycin and IV ceftriaxone given concern for secondary bacterial pneumonia and IV dexamethsone given hypoxia and known COVID positive status. She was febrile with Tmax 101.9? 10/21/20 but fevers subsided after initiation of IV antibiotics. CXR and CTA with findings of diffuse lung disease consistent with COVID-19. She was weaned to room air 10/22/20. Symptoms resolved and she felt significantly better and was discharged in hemodynamically stable condition 10/24/20. (2) Hypoxemia: Code(s): R09.02 - Hypoxemia Status: Resolved Assessment and Plan: No documented episodes of hypoxia, however noted in documentation that patient became hypoxic down to 88% while in the emergency department. This is secondary to COVID-19 pneumonia. She was requiring 2 liters O2 per nasal cannula but was weaned to room air 10/22/20. Continue supplemental O2 as needed with goal saturation 90% or above. Wean oxygen to goal. (3) Sepsis: Qualifiers: Sepsis type: sepsis due to unspecified organism Sepsis acute organ dysfunction status: with acute organ dysfunction Severe sepsis acute organ dysfunction type: acute respiratory failure Acute respiratory failure type: with hypoxia Severe sepsis shock status: without septic shock Qualified Code(s): A41.9 - Sepsis, unspecified organism; R65.20 - Severe sepsis without septic shock; J96.01 - Acute respiratory failure with hypoxia Code(s): A41.9 - Sepsis, unspecified organism Status: Resolved Assessment and Plan: Patient met criteria for sepsis upon presentation with persistent fever and tachypnea in the setting of known COVID pneumonia with concern for secondary bacterial infection, thus she was treated with IV antibiotics. Blood cultures were obtained with preliminary cultures showing NGTD. Fevers resolved. Leukocytosis mildly increased secondary to steroids as she was much improved clinically. (4) HTN (hypertension): Code(s): I10 - Essential (primary) hypertension Status: Chronic Assessment and Plan: Blood pressure was reviewed and acceptable. Cardizem was continued. (5) Hypothyroidism: Code(s): E03.9 - Hypothyroidism, unspecified Status: Chronic Assessment and Plan: TSH is 0.59. Levothyroxine was continued. (6) Hemorrhoids: Code(s): K64.9 - Unspecified hemorrhoids Status: Acute Assessment and Plan: Preparation H was added for hemorrhoid discomfort. DS: Summary Hospital Course Reason for hospitalization: COVID-19 infection with persistent symptoms, superimposed bacterial pneumonia Hospital Course: Mrs. Walters is a 70 y.o. female with PMH significant for diverticulitis, PUD, hypertension, and COVID-19 pneumonia (tested positive 10/08/2020) who presented to the emergency department for the evaluation of persistent symptoms following COVID-19 diagnosis. She complained of persistent hacking cough with pleuritic discomfort and persistent fever. She was noted to be hypoxic in the emergency department at 88% and placed on 2 liters per nasal cannula. Initial workup in the emergency department included CXR showing diffuse lung disease with patchy opacities, chest CTA showing no pulmonary embolism. WBC was 5,200 with neutrophil predominance, troponin <0.012, EKG with sinus rhythm and incomplete right bundle branch block. She met SIRS criter in the emergency department with tachypnea and fever. Blood cultures were obtained. Lactic acid was n
--- NOTE | 2020-10-24 14:31 | PCRCNOTE ---
HOME O2 COMPLETE, NO REQUIREMENTS
[2020-10-25 16:04] LABS: Pneumococcal Antigen Urine Not Detected (Not Detected)
[2020-10-27 09:45] LABS: Legionella pneumophila Ag Ur Not Detected (Not Detected)
--- NOTE | 2020-11-03 11:53 | PC.NURSE ---
The patient called on 11/03/20 stating that she doesn't feel right. The patient stated she saw her primary care physician yesterday. However, the patient stated that last night she started having chest tightness and difficulty swallowing. I advised the patient so go to the ER.
== END 2020-10-24 19:15 | disposition home or self-care (01) | DRG 871 ==
LOC: ANHED 21:37 → ANH3MEDSUR 21:50
PROVIDERS: Emergency Medicine Emergency Medical Services; Physician Assistant; Admitting Provider Internal Medicine; Emergency Provider Emergency Medicine; PCP Family Medicine Adolescent Medicine; Visit Provider Internal Medicine
DX: A41.89 Other specified sepsis (principal); J96.01 Acute respiratory failure with hypoxia; U07.1 COVID-19; J12.82 Pneumonia due to coronavirus disease 2019; J15.9 Unspecified bacterial pneumonia; R65.20 Severe sepsis without septic shock; K21.9 Gastro-esophageal reflux disease without esophagitis; I10 Essential (primary) hypertension; E03.9 Hypothyroidism, unspecified; E87.6 Hypokalemia; K64.9 Unspecified hemorrhoids; Z79.82 Long term (current) use of aspirin; Z79.899 Other long term (current) drug therapy; Z87.11 Personal history of peptic ulcer disease; Z87.19 Personal history of other diseases of the digestive system; Z87.891 Personal history of nicotine dependence; Z90.49 Acquired absence of other specified parts of digestive tract
CPT/HCPCS: 36415; 36600; 71045; 71275; 80048; 80053; 81001; 82375; 82550; 82607; 82728; 82746; 82805; 83050; 83540; 83550; 83605; 83615; 83690; 83735; 84443; 84466; 84484; 85025; 85380; 85610; 85730; 86140; 87040; 87449; 87899; 93005; 94618; 94640; 96361; 96365; 96366; 96372; 96375; 96376; 99285; A9270; G0378; J0131; J0456; J0696; J1100; J1650; J7030; J7120; Q9967

== ENCOUNTER 2020-10-31 12:17 | Outpatient (CLI) | payer MEDICARE, SELFPAY ==
[2020-10-31 12:56] LABS: Hemoglobin 10.7 g/dL (12.0-15.0); Mean Corpuscular HGB Conc 30.6 g/dl (32-36); Mean Corpuscular Hemoglobin 23.1 pg (26-34); Mean Corpuscular Volume 75.4 fl (80-100); Mean Platelet Volume 10.7 fl (7.4-10.4); Platelet Count Result 334 k/mm3 (150-375); Red Blood Count 4.64 M/mm3 (4.2-5.4); Red Cell Distribution Width 21.8 % (11.5-14.5); White Blood Count 10.7 K/mm3 (4.5-10.0)
[2020-10-31 13:11] LABS: Alanine Aminotransferase 45 U/L (4-35); Albumin Level 3.4 g/dL (3.5-5.1); Alkaline Phosphatase 70 U/L (38-126); Anion Gap 6 mmol/L (8-16); Aspartate Amino Transferase 23 U/L (14-36); Bilirubin,Total 0.8 mg/dL (0.2-1.3); Blood Urea Nitrogen 27 mg/dL (7-17); Calcium 8.6 mg/dL (8.4-10.2); Carbon Dioxide 23 mmol/L (22-30); Chloride 102 mmol/L (98-107); Estimated Glomerular Filt Rate > 60; Glucose 118 mg/dL (65-105); Potassium 4.6 mmol/L (3.4-5.0); Sodium 131 mmol/L (137-145)
== END 2020-10-31 12:18 | disposition home or self-care (01) ==
PROVIDERS: PCP Family Medicine Adolescent Medicine; Visit Provider Physician Assistant
DX: D64.9 Anemia, unspecified (principal); A41.9 Sepsis, unspecified organism; U07.1 COVID-19
CPT/HCPCS: 36415; 80053; 85027

== ENCOUNTER → 2021-03-19 14:41 | Outpatient (CLI) | payer MEDICARE, SELFPAY ==
--- NOTE | ~2021-03-19 | MM_ITS ---
EXAMINATION: MM screening [place] BI w elder HISTORY: Screening mammogram TECHNIQUE: Craniocaudal and mediolateral oblique 3-D tomosynthesis images were obtained and synthetic 2-D images were generated. CAD analysis was submitted and interpreted. COMPARISON: 04/21/2019, 04/01/2017, 02/28/2015 bilateral digital screening mammogram examinations BREAST PARENCHYMAL COMPOSITION: The breasts are almost entirely fatty. FINDINGS: There is no evidence of suspicious mass, calcification, or architectural distortion to sugg est malignancy in either breast. There has been no suspicious interval change. IMPRESSION: 1. No mammographic evidence of malignancy. 2. Recommend routine screening mammography in one year. BI-RADS Category 1: Negative Reviewed, dictated and finalized at location A.
== END ==
PROVIDERS: PCP Family Medicine Adolescent Medicine; Visit Provider Family Medicine Adolescent Medicine
DX: Z12.31 Encounter for screening mammogram for malignant neoplasm of breast (principal)
CPT/HCPCS: 77063; 77067

== ENCOUNTER → 2021-03-25 11:08 | Outpatient (CLI) | payer MEDICARE, SELFPAY ==
--- NOTE | ~2021-03-25 | XR_ITS ---
XR chest 2V 03/25/2021 12:32 Indication: History of smoking Procedure: 2 view chest Comparison: Comparison to multiple prior studies sequentially, with oldest reviewed study dated 07/13. Findings: Heart size normal. No focal air space disease, pulmonary edema, pleural effusion or suspect ed pneumothorax. No acute osseous abnormality. Impression: 1: No acute cardiopulmonary disease. Reviewed, dictated and finalized at location A. Impression: 1: No acute cardiopulmonary disease.
== END ==
PROVIDERS: PCP Family Medicine Adolescent Medicine; Visit Provider Family Medicine Adolescent Medicine
DX: Z87.891 Personal history of nicotine dependence (principal)
CPT/HCPCS: 71046

== ENCOUNTER → 2021-04-04 09:05 | Outpatient (CLI) | payer MEDICARE, SELFPAY ==
--- NOTE | ~2021-04-04 | MR_ITS ---
EXAMINATION: MR thoracic spine wo con DATE: 04/04/2021 10:35 INDICATION: Mid and low back pain. TECHNIQUE: Magnetic resonance imaging (MRI) of the thoracic spine was performed without intravenous c ontrast. Sagittal localizer T1-weighted FSE of the cervical spine was obtained. Thoracic spine sequen veronica included sagittal T2-weighted FSE, sagittal T1-weighted FSE, sagittal STIR FSE, and axial T2-weig hted FSE. COMPARISON: Chest CT 10/21/2020 FINDINGS: There is 7 mm dextrocurvature in upper thoracic spine. Vertebral body heights are normal. T here is mildly decreased disc height at T11-T12. The discs do not extend beyond the endplate margins. There is multilevel mild facet joint osteoarthritis. No neural foraminal stenosis or central canal s tenosis. The spinal cord signal intensity is normal. IMPRESSION: 1. Mild thoracic spondylosis. Reviewed, dictated and finalized at location A.
--- NOTE | ~2021-04-04 | MR_ITS ---
EXAMINATION: MR cervical spine wo con DATE: 04/04/2021 10:34 INDICATION: Persistent neurogenic claudication. Neck pain. TECHNIQUE: Magnetic resonance imaging (MRI) of the cervical spine was performed without intravenous c ontrast. Sequences included sagittal T2-weighted FSE, sagittal STIR FSE, sagittal T1-weighted FSE, ax ial MERGE, and axial T2-weighted FSE. COMPARISON: None FINDINGS: There is 2 mm anterolisthesis of C4 on C5. There is mild chronic height loss of C6 vertebra l body. There is severely decreased disc height at C4-C5 with endplate remodeling. The spinal cord si gnal intensity is normal. The following disc levels are specifically discussed: C2-C3: The disc does not extend beyond the endplate margin. There is no uncovertebral joint osteoarth ritis. There is mild right facet joint osteoarthritis. There is no neural foraminal stenosis. There i s no central canal stenosis. C3-C4: There is a right central extrusion. There is no uncovertebral joint osteoarthritis. There is m oderate and mild left facet joint osteoarthritis. There is no neural foraminal stenosis. There is mil d central canal stenosis with ventral indentation of the spinal cord. C4-C5: The disc is bulging. There is severe bilateral uncovertebral joint osteoarthritis. There is no facet joint osteoarthritis. There is mild bilateral neural foraminal stenosis. There is mild central canal stenosis. C5-C6: The disc does not extend beyond the endplate margin. There is no uncovertebral joint osteoarth ritis. There is mild bilateral facet joint osteoarthritis. There is no neural foraminal stenosis. The re is no central canal stenosis. C6-C7: The disc does not extend beyond the endplate margin. There is no uncovertebral joint osteoarth ritis. There is no facet joint osteoarthritis. There is no neural foraminal stenosis. There is no nata tral canal stenosis. C7-T1: The disc does not extend beyond the endplate margin. There is no uncovertebral joint osteoarth ritis. There is severe right and mild left facet joint osteoarthritis. There is mild bilateral neural foraminal stenosis. There is no central canal stenosis. IMPRESSION: 1. Severe spondylosis at C4-C5 and mild spondylosis at other levels. Reviewed, dictated and finalized at location A.
--- NOTE | ~2021-04-04 | MR_ITS ---
EXAMINATION: MR lumbar spine wo con DATE: 04/04/2021 10:35 INDICATION: Neurogenic claudication. TECHNIQUE: Magnetic resonance imaging (MRI) of the lumbar spine was performed without intravenous con trast. Sequences included sagittal T2-weighted FSE, sagittal T2-weighted FS FSE, sagittal T1-weighted FSE, and axial T2-weighted FSE. COMPARISON: Lumbar spine MRI 05/29/2020 FINDINGS: There is 6 degrees levocurvature of lumbar spine. Vertebral body heights and intervertebral disc heights are normal. The distal spinal cord signal intensity is normal. The conus medullaris is at L1-L2. There is a 4.2 cm fusiform infrarenal aortic aneurysm. The following disc levels are specif ically discussed: L1-L2: The disc does not extend beyond the endplate margin. There is mild bilateral facet joint osteo arthritis. There is no neural foraminal stenosis. There is no central canal stenosis. L2-L3: The disc does not extend beyond the endplate margin. There is mild bilateral facet joint osteo arthritis. There is no neural foraminal stenosis. There is no central canal stenosis. L3-L4: There is a right foraminal protrusion. There is mild bilateral facet joint osteoarthritis. The re is mild right neural foraminal stenosis. There is no central canal stenosis. L4-L5: The disc does not extend beyond the endplate margin. There is moderate right and severe left f acet joint osteoarthritis. There is no neural foraminal stenosis. There is no central canal stenosis. L5-S1: The disc is bulging and has an annular fissure. There is moderate right and severe left facet joint osteoarthritis. There is no neural foraminal stenosis. There is mild central canal stenosis. IMPRESSION: 1. Mild lumbar spondylosis, stable from 05/29/2020. 2. 4.2 cm fusiform infrarenal aortic aneurysm. Reviewed, dictated and finalized at location A.
== END ==
PROVIDERS: PCP Family Medicine Adolescent Medicine; Visit Provider Family Medicine Adolescent Medicine
DX: I73.9 Peripheral vascular disease, unspecified (principal); M47.894 Other spondylosis, thoracic region; M47.892 Other spondylosis, cervical region; M47.896 Other spondylosis, lumbar region; I71.4 Abdominal aortic aneurysm, without rupture
CPT/HCPCS: 72141; 72146; 72148

== ENCOUNTER 2022-01-29 10:07 | Outpatient (CLI) | payer MEDICARE, SELFPAY ==
--- NOTE | ~2022-01-29 | CT_ITS ---
EXAMINATION: CTA abdomen pelvis DATE: 01/29/2022 10:49 INDICATION: Abdominal aortic aneurysm. TECHNIQUE: Computed tomographic angiography (CTA) of the abdomen and pelvis was performed with 100 mL Omnipaque-350 intravenous contrast. Automated exposure control and iterative reconstruction techniqu e were employed. The dose-length product was 488.89 mGy-cm. Maximum intensity projection 3D-reconstru ctions of the aorta and other arteries were constructed by the technologist on a separate workstation . COMPARISON: CT abdomen and pelvis 09/26/2020 FINDINGS: The visualized portions of the lung bases demonstrate mild atelectasis. No pleural effusion . The heart size is normal. No pericardial effusion. The liver, gallbladder, spleen, pancreas, and ad renal glands are normal. There is cortical thinning of the kidneys. There is an anastomosis in the re ctosigmoid. The appendix is normal. There are no dilated loops of bowel. There are no pathologically enlarged lymph nodes. There is no free intraperitoneal fluid. There is an intimal flap in splenic art christiano. There is mild stenosis of celiac axis and superior mesenteric artery. There is mild stenosis of the renal arteries. There is stenosis of inferior mesenteric artery origin. There is a 4.6 cm fusifor m aneurysm of infrarenal aorta that measures 4.2 cm on 09/26/2020. There is a stent in left common il iac artery and external iliac artery. There is a stent in right common iliac artery and external wes c artery. There is moderate stenosis of proximal right superficial femoral artery bridged by a graft. There is mild thoracolumbar spondylosis. IMPRESSION: 1. 4.6 cm fusiform aneurysm of infrarenal aorta, increased from 4.2 cm on 09/26/2020. Reviewed, dictated and finalized at location B. IMPRESSION: 1. 4.6 cm fusiform aneurysm of infrarenal aorta, increased from 4.2 cm on 09/26.
[2022-01-29 10:35] LABS: Estimated Glomerular Filt Rate > 60
== END 2022-01-29 10:08 | disposition home or self-care (01) ==
PROVIDERS: PCP Family Medicine Adolescent Medicine; Visit Provider Specialist
DX: I71.4 Abdominal aortic aneurysm, without rupture (principal)
CPT/HCPCS: 74174; Q9967

== ENCOUNTER 2022-02-17 22:19 | Emergency (ER) | payer MEDICARE, SELFPAY ==
[2022-02-17 23:06] VITALS: BP 123/48; PULSE 84; RESP 20; TEMP 36.2; O2SAT 96
--- NOTE | 2022-02-18 03:17 | ED.GENADULT ---
HPI - General Adult General Chief complaint: Extremity Problem,Nontraumatic Stated complaint: right leg pain Time Seen by Provider: 02/18/22 02:59 Source: patient Limitations: no limitations History of Present Illness HPI narrative: 71-year-old female presenting to the emergency department for evaluation of chronic right hip pain. Patient reports she has a longstanding history of neuropathy but sciatica pain. Patient states that she has had frequent follow-up. Patient states she has had follow-up with a vascular surgeon and is scheduled to have an ultrasound on 02/25. Patient has also had follow-up with neurology and scheduled for an MRI of her neck soon. Patient states tonight that the pain was unbearable so she presented emerged department for evaluation. Patient denies any falls or injuries. Patient reports she is only taking Tylenol and ibuprofen for pain control. Related Data Home Medications Medication Instructions Recorded Confirmed aspirin 81 mg tablet,delayed 81 mg PO DAILY 10/19/19 12/12/21 release levothyroxine 75 mcg capsule 75 mcg PO DAILY 10/19/19 12/12/21 Allergies Allergy/AdvReac Type Severity Reaction Status Date / Time gabapentin Allergy Rash Verified 01/21/22 08:14 baclofen AdvReac Unknown sleepy Verified 01/21/22 08:14 [id number] Reductase AdvReac Unknown myalgia Verified 01/21/22 08:14 Inhibitor Review of Systems Review of Systems: CONSTITUTIONAL: Denies fever, chills, or sweats. EYES: Denies visual changes, redness, or discharge. ENT: Denies rhinorrhea, congestion, sore throat, or otalgia. CARDIOVASCULAR: Denies chest pain, palpitations, or edema. RESPIRATORY: Denies cough or dyspnea. GASTROINTESTINAL: Denies abdominal pain, nausea, vomiting, or diarrhea. GENITOURINARY: Denies dysuria or hematuria. SKIN: Denies rash or itching. MUSCULOSKELETAL: See HPI NEUROLOGIC: Denies headache, numbness, or weakness. [facility] Past Medical History Medical History GERD (gastroesophageal reflux disease) Hemorrhoids History of diverticulitis History of stomach ulcers HTN (hypertension) Normal colonoscopy 07/01 Repeat 07/06 Pneumonia due to 2019 novel coronavirus Sepsis Thyroid disease Surgical History Surgical History History of colectomy 2019 diverticular abscess History of total abdominal hysterectomy 2019 (during sigmoid colectomy) Family History Family History Mother Colon cancer Father Emphysema/COPD Sibling Heart disease Unknown Diabetes mellitus Social History Social History Social History: She is independent in activities of daily living. She still works at [employer] 3 days a week. She is a former smoker and smoked 1 pack per day for 50 years but quit smoking in 2016. She rarely drinks alcohol and only in moderation. She denies illicit substance use. She has been for 26 years. Primary care physician: Dr. Kg Chaney Code status: Full code Surrogate decision maker: Roxane (daughter) Smoking packs per day: 1 Smoking cigarettes per day: 20.0 Years smoked: 50 Smoking pack-years: 50.00 Smoking status: Former smoker Tobacco type: cigarettes Smoking end date: 10/12/15 Alcohol intake: never Substance use: never Substance use type: does not use Gender identity (if verbalized by the patient): Female Sexual Orientation (if Verbalized by the Patient): Straight or Heterosexual Spiritual care concerns: No Agree to blood products: Yes Exam Narrative: APPEARANCE: Well appearing, no pain, no distress, well-nourished. HEAD: normocephalic, atraumatic. EYES: PERRLA/EOMI, conjunctivae clear. NOSE: Normal no drainage THROAT: Pharynx clear, no exudate. NECK: Supple. No adenopathy, no masses. RESPIRATORY: A
[2022-02-18] MEDS: HYDROcodone/acetaminophen (*CRX) 5-325 MG TABLET 1 TAB PO (03:43)
[2022-02-18 04:13] VITALS: BP 160/60; PULSE 48; RESP 18; O2SAT 98
== END 2022-02-18 04:21 | disposition home or self-care (01) ==
PROVIDERS: Emergency Provider Emergency Medicine; PCP Family Medicine Adolescent Medicine
DX: M54.31 Sciatica, right side (principal); I10 Essential (primary) hypertension; E07.9 Disorder of thyroid, unspecified; K21.9 Gastro-esophageal reflux disease without esophagitis; Z87.01 Personal history of pneumonia (recurrent); Z86.16 Personal history of COVID-19; Z90.49 Acquired absence of other specified parts of digestive tract; Z87.891 Personal history of nicotine dependence; Z79.82 Long term (current) use of aspirin
CPT/HCPCS: 99283; A9270

== ENCOUNTER → 2022-02-21 08:24 | Outpatient (CLI) | payer MEDICARE, SELFPAY ==
--- NOTE | ~2022-02-21 | MR_ITS ---
EXAMINATION: MR cervical spine wo con DATE: 02/21/2022 09:11 INDICATION: Myelopathy. TECHNIQUE: Magnetic resonance imaging (MRI) of the cervical spine was performed without intravenous c ontrast. Sequences included sagittal T2-weighted FSE, sagittal T2-weighted FS FSE, sagittal T1-weight ed FSE, axial MERGE, and axial T2-weighted FSE. COMPARISON: Cervical spine MRI 04/04/2021 FINDINGS: There is 2 mm retrolisthesis of C4 on C5. There is a chronic compression fracture of C6 wit h 2/5 loss of height. There is mild chronic height loss of C7 and multiple thoracic vertebral bodies associated with Schmorl's nodes. There is severely decreased disc height at C4-C5. The spinal cord si gnal intensity is normal. The following disc levels are specifically discussed: C2-C3: There is a central protrusion. There is no uncovertebral joint osteoarthritis. There is mild b ilateral facet joint osteoarthritis. There is no neural foraminal stenosis. There is no central canal stenosis. C3-C4: There is a right central extrusion. There is no uncovertebral joint osteoarthritis. There is m oderate right and mild left facet joint osteoarthritis. There is no neural foraminal stenosis. There is mild central canal stenosis with ventral indentation of the spinal cord. C4-C5: The disc is bulging. There is severe bilateral uncovertebral joint osteoarthritis. There is no facet joint osteoarthritis. There is mild bilateral neural foraminal stenosis. There is mild central canal stenosis. C5-C6: The disc does not extend beyond the endplate margin. There is mild bilateral uncovertebral giovanni nt osteoarthritis. There is mild bilateral facet joint osteoarthritis. There is mild bilateral neural foraminal stenosis. There is no central canal stenosis. C6-C7: The disc does not extend beyond the endplate margin. There is no uncovertebral joint osteoarth ritis. There is mild left facet joint osteoarthritis. There is no neural foraminal stenosis. There is no central canal stenosis. C7-T1: The disc does not extend beyond the endplate margin. There is no uncovertebral joint osteoarth ritis. There is moderate right and mild left facet joint osteoarthritis. There is no neural foraminal stenosis. There is no central canal stenosis. IMPRESSION: 1. Severe spondylosis C4-C5 and mild spondylosis at other levels, stable from 04/04/2021. Reviewed, dictated and finalized at location A. IMPRESSION: 1. Severe spondylosis C4-C5 and mild spondylosis at other levels, stable from .
== END ==
PROVIDERS: PCP Family Medicine Adolescent Medicine; Visit Provider Nurse Practitioner Acute Care
DX: G95.9 Disease of spinal cord, unspecified (principal); M47.892 Other spondylosis, cervical region
CPT/HCPCS: 72141

== ENCOUNTER 2022-05-18 14:04 | Emergency (ER) | payer MEDICARE, SELFPAY ==
[2022-05-18 14:08] VITALS: BP 109/79; PULSE 83; RESP 20; TEMP 36.9; O2SAT 100
--- NOTE | 2022-05-18 17:46 | ED.GENADULT ---
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 Patient reports she had femoropopliteal bypass 3 weeks ago. Afterward she had been on some antibiotics and developed a yeast infection. The yeast infection has been treated. She been having some burning over the last week and just noticed today that she had 2 small ulcers that seem to be like canker sores in the area. She has had no blisters. No history of herpetic infection. She has not had a shingles flare here. She has no vaginal discharge. Additionally patient would like me to evaluate her surgical site because it is a bit more firm than typical. Surgery was performed by Dr. Che. Related Data Home Medications Medication Instructions Recorded Confirmed aspirin 81 mg tablet,delayed 81 mg PO DAILY 10/19/19 04/01/22 release (Adult Aspirin Regimen) clopidogrel 75 mg tablet (Plavix) 75 mg PO DAILY 03/25/22 04/01/22 Allergies Allergy/AdvReac Type Severity Reaction Status Date / Time gabapentin Allergy Rash Verified 04/17/22 09:10 baclofen AdvReac Unknown sleepy Verified 04/17/22 09:10 [id number] Reductase AdvReac Unknown myalgia Verified 04/17/22 09:10 Inhibitor Review of Systems Review of Systems: All systems reviewed & are unremarkable except as noted in HPI and below Constitutional: Constitutional: Denies chills and Denies fever(s) Cardiovascular: Cardiovascular: Denies chest pain, Denies rapid heart rate and Denies radiating jaw, neck or arm pain Respiratory: Respiratory: Denies cough and Denies dyspnea Gastrointestinal: Gastrointestinal: Denies abdominal pain, Denies nausea and Denies vomiting Genitourinary: Genitourinary: Denies abnormal vaginal bleeding, Denies nocturia, Reports genital lesions, Denies dysuria, Denies pelvic pain, Denies flank pain and Denies vaginal discharge Integumentary/Breasts: Skin/Breast: Denies erythema, Denies rash and Reports skin ulcer PMFSH Past Medical History Medical History GERD (gastroesophageal reflux disease) Hemorrhoids History of diverticulitis History of stomach ulcers HTN (hypertension) Normal colonoscopy 07/01 Repeat 07/06 Pneumonia due to 2019 novel coronavirus Sepsis Thyroid disease Surgical History Surgical History History of colectomy 2019 diverticular abscess History of total abdominal hysterectomy 2019 (during sigmoid colectomy) Family History Family History Mother Colon cancer Carcinoma of colon Colon polyp Hypertension Father Emphysema/COPD Sibling Heart disease Diabetes mellitus Hypertension Unknown No problems noted. Daughter Diabetes mellitus Daughter Diabetes mellitus Heart disease Hypertension Grandparent Diabetes mellitus Malignant neoplasm of prostate Sibling Hypertension Social History Social History Social History: She is independent in activities of daily living. She still works at [employer] 3 days a week. She is a former smoker and smoked 1 pack per day for 50 years but quit smoking in 2015. She rarely drinks alcohol and only in moderation. She denies illicit substance use. She has been for 26 years. Primary care physician: Dr. Kg Chaney Code status: Full code Surrogate decision maker: Roxane (daughter) Smoking packs per day: 1 Smoking cigarettes per day: 20.0 Years smoked: 50 Smoking pack-years: 50.00 Smoking status: Former smoker Tobacco type: cigarettes Smoking end date: 10/12/15 Alcohol intake: never Substance us
[2022-05-18 17:59] VITALS: BP 158/58; PULSE 59; RESP 20; O2SAT 100
== END 2022-05-18 18:01 | disposition home or self-care (01) ==
PROVIDERS: Emergency Provider Emergency Medicine; PCP Family Medicine Adolescent Medicine
DX: N90.4 Leukoplakia of vulva (principal); I10 Essential (primary) hypertension; E07.9 Disorder of thyroid, unspecified; K21.9 Gastro-esophageal reflux disease without esophagitis; Z87.01 Personal history of pneumonia (recurrent); Z86.16 Personal history of COVID-19; Z79.82 Long term (current) use of aspirin; Z90.49 Acquired absence of other specified parts of digestive tract; Z90.710 Acquired absence of both cervix and uterus; Z87.891 Personal history of nicotine dependence; Z98.62 Peripheral vascular angioplasty status
CPT/HCPCS: 99283

== ENCOUNTER 2022-06-07 16:11 | Emergency (ER) | payer MEDICARE, SELFPAY ==
[2022-06-07 16:13] VITALS: BP 141/71; PULSE 57; RESP 18; TEMP 36.3; O2SAT 100
[2022-06-07 17:29] VITALS: BP 132/52; PULSE 104; RESP 15; O2SAT 100
--- NOTE | 2022-06-07 18:46 | ED.ALLEREA ---
HPI - Allergic Reaction General Chief complaint: Allergic Reaction <BRYANT Soto Last Filed: 06/07/22 18:54> Stated complaint: allergic reaction <Luciana Gonzalez PA-C - Last Filed: 06/07/22 18:54> Time Seen by Provider: 06/07/22 17:46 <BRYANT Soto Last Filed: 06/07/22 18:54> Source: patient <BRYANT Soto Last Filed: 06/07/22 18:54> Mode of arrival: ambulatory <BRYANT Soto Last Filed: 06/07/22 18:54> Limitations: no limitations <BRYANT Soto Last Filed: 06/07/22 18:54> History of Present Illness HPI narrative: This is a 71-year-old female that presents to the emergency department for an itchy rash. Present over the last 6 days. Reports it started after she was placed on clindamycin by her protection manager. Reports she had a small area of possible infection at her vascular access site after her recent bypass surgery. She called her protection manager who told her to stop the clindamycin. She does have follow-up with him next week. Reports diffuse itching. She has been taking Benadryl as needed. She received a steroid shot last week from her primary provider. Reports she was supposed to be prescribed an oral steroid, but there was not a medication at the pharmacy for her. Denies current chest pain or shortness of breath. <Luciana Gonzalez PA-C - Last Filed: 06/07/22 18:54> Related Data Home medications: Home Medications Medication Instructions Recorded Confirmed aspirin 81 mg tablet,delayed 81 mg PO DAILY 10/19/19 05/22/22 release (Adult Aspirin Regimen) clopidogrel 75 mg tablet (Plavix) 75 mg PO DAILY 03/25/22 05/22/22 <BRYANT Soto Last Filed: 06/07/22 18:54> Allergies/adverse reactions: Allergies Allergy/AdvReac Type Severity Reaction Status Date / Time clindamycin Allergy Severe Rash Verified 06/07/22 17:38 gabapentin Allergy Rash Verified 06/07/22 17:38 baclofen AdvReac Unknown sleepy Verified 06/07/22 17:38 [id number]-[id number]-[id number] Reductase AdvReac Unknown myalgia Verified 06/07/22 17:38 Inhibitor <Luciana Gonzalez PA-C - Last Filed: 06/07/22 18:54> Review of Systems Review of Systems: CONSTITUTIONAL: Denies fever CARDIOVASCULAR: Denies chest pain RESPIRATORY: Denies dyspnea. SKIN: Reports rash and itching. <Luciana Gonzalez PA-C - Last Filed: 06/07/22 18:54> All systems reviewed & are unremarkable except as noted in HPI and below <Luciana Gonzalez PA-C - Last Filed: 06/07/22 18:54> [facility] Past Medical History Medical History: Medical History GERD (gastroesophageal reflux disease) Hemorrhoids History of diverticulitis History of stomach ulcers HTN (hypertension) Normal colonoscopy 07/01 Repeat 07/06 Pneumonia due to 2019 novel coronavirus Sepsis Thyroid disease <Luciana Gonzalez PA-C - Last Filed: 06/07/22 18:54> Surgical History Surgical History: Surgical History History of colectomy 2019 diverticular abscess History of total abdominal hysterectomy 2019 (during sigmoid colectomy) <Luciana Gonzalez PA-C - Last Filed: 06/07/22 18:54> Family History Family History: Family History Mother Colon cancer Carcinoma of colon Colon polyp Hypertension Father Emphysema/COPD Sibling Heart disease Diabetes mellitus Hypertension Unknown No problems noted. Daughter Diabetes mellitus Daughter Diabetes mellitus Heart disease Hypertension Grandparent Diabetes mellitus Malignant neoplasm of prostate Sibling Hypertension <Luciana Gonzalez PA-C - Last Filed: 06/07/22 18:54> Social History Social History: Social History Social History: She is independent in activities of daily living. She still works at [employer] 3 days a
[2022-06-07] MEDS: FAMOTIDINE 20 MG TABLET PO (18:53)
[2022-06-07] MEDS: LORATADINE 10 MG TABLET PO (18:53)
[2022-06-07 19:05] VITALS: BP 113/44; PULSE 52; RESP 16
== END 2022-06-07 19:05 | disposition home or self-care (01) ==
PROVIDERS: Emergency Provider Emergency Medicine; PCP Family Medicine Adolescent Medicine
DX: L27.0 Generalized skin eruption due to drugs and medicaments taken internally (principal); T36.8X5A Adverse effect of other systemic antibiotics, initial encounter; I10 Essential (primary) hypertension; K21.9 Gastro-esophageal reflux disease without esophagitis; E07.9 Disorder of thyroid, unspecified; Z86.16 Personal history of COVID-19; Z87.01 Personal history of pneumonia (recurrent); Z90.49 Acquired absence of other specified parts of digestive tract; Z90.710 Acquired absence of both cervix and uterus; Z87.891 Personal history of nicotine dependence; Z95.820 Peripheral vascular angioplasty status with implants and grafts
CPT/HCPCS: 99283; A9270

== ENCOUNTER 2022-09-28 08:06 | Inpatient (IN) | payer MEDICARE, MEDICAID, SELFPAY ==
[2022-09-28] VITALS (58 sets, daily range): BP systolic 108–222; BP diastolic 53–110; PULSE 60–76; RESP 11–99; TEMP 36.1–37; O2SAT 84–100; BMI 27.2
--- NOTE | ~2022-09-28 | CT_ITS ---
EXAMINATION: CTA abdomen pelvis DATE: 09/28/2022 10:42 INDICATION: Graft fluid collection. TECHNIQUE: Computed tomographic angiography (CTA) of the abdomen and pelvis was performed with 100 mL Omnipaque-350 intravenous contrast. Maximum intensity projection 3D-reconstructions of the aorta and other arteries were constructed by the technologist on a separate workstation. The dose-length produ ct (DLP) was 543.90 mGy-cm. Automated exposure control and iterative reconstruction technique were em ployed. COMPARISON: 01/29/2022 FINDINGS: Minimal dependent atelectasis is present in the lung bases. The heart size is normal. The l iver, spleen, pancreas, and adrenal glands are normal. The kidneys are unremarkable. No pathologicall y enlarged abdominal or pelvic lymph nodes are identified. There is no free intraperitoneal gas or ev idence of bowel obstruction. A surgical staple line is noted in the rectum. There is mild thoracolumb ar spondylosis. There is a stable 4.6 cm fusiform aneurysm of the infrarenal abdominal aorta. There is moderate to se mariza stenosis at the origin of the celiac axis. There is calcified atherosclerosis without hemodynami sophie significant stenosis at the origin of the superior mesenteric artery. Single renal arteries are present. The inferior mesenteric artery is normal at its origin. The right common iliac artery is oc cluded. There are areas of subsegmental perfusion in the right internal and external iliac arteries. There is a stent of the left common iliac artery. There is a femoral-femoral bypass graft. A 6.4 x 6. 1 cm fluid collection is seen near the left portion of the graft without abnormal enhancement or evid ence of contrast extravasation. There is a 5.0 x 4.1 cm simple fluid collection in the anteromedial a spect of the right thigh adjacent to surgical clips without abnormal enhancement or evidence of contr ast extravasation. There is moderate stenosis at the origin of the left superficial femoral artery ju st beyond the bypass graft anastomosis. IMPRESSION: 1. Fluid collections in the left inguinal region adjacent to the femoral-femoral bypass graft and in the anteromedial aspect of the right thigh adjacent to surgical clips, likely postsurgical in nature, without abnormal enhancement or contrast extravasation. 2. Stable fusiform aneurysm of the infrarenal abdominal aorta. 3. 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 Reviewed, dictated and finalized at location A. R TAKERS SUPERVISOR IMPRESSION: 1. Fluid collections in the left inguinal region adjacent to the femoral-femora l bypass graft and in the anteromedial aspect of the right thigh adjacent to villa rgical clips, likely postsurgical in nature, without abnormal enhancement or co ntrast extravasation. 2. Stable fusiform aneurysm of the infrarenal abdominal aorta. 3. 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
--- NOTE | ~2022-09-28 | MR_ITS ---
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 Sequences included full-field axial PD-weighted FS FSE and T1-weighted FSE, coronal of the pelvis with PD-weighted FS FSE, T2-weighted FSE and T1-weighted FSE, small field of view of the left hip w ith axial PD-weighted FS FSE, sagittal PD-weighted FS FSE, coronal PD-weighted FS FSE and coronal T2 weighted FSE. Additional radial T1-weighted FGR oriented orthogonal to the acetabular rim were obtai angelique for evaluation of the labrum. COMPARISON: CT dated 09/28/2022 FINDINGS: Bones/labrum/cartilage: Alignment is normal. There is prominent marrow edema at the left femoral head and neck. There is serp iginous low signal intensity fracture line extending across the femoral head consistent with osteonec rosis/avascular necrosis which underlies the majority of the articular surface of the femoral head. L ikely secondary fragmentation of a portion of the articular surface with irregular fluid signal inten sity fracture line underlying a 2.5 x 2.0 cm region of the anterosuperior aspect of the femoral head consistent with an unstable fragment in situ. There is subtle irregularity to the cortical contour at the anterior margin of the nondisplaced fracture line. No evident collapse of the articular cortex. Labrum is normal. Mild osteoarthritis with partial thickness cartilage loss resulting in mild nonunif orm joint space narrowing most prominent at the posterior, superomedial and anteroinferior aspects of the joint space. No osteonecrosis at the contralateral right femoral head. No other fractures. No pa thologic marrow replacing process. Fluid: Moderate-sized left hip joint effusion. Physiologic amount fluid in the right hip joint. Femoral-femo ral bypass graft with 7.1 x 5.8 x 4.9 cm likely seroma surrounding the left side of the graft at its confluence with the left common femoral artery. There is a second smaller 4.6 x 3.9 x 3.8 cm seroma e xtending inferiorly from the junction of the right side of the graft and the right common femoral art christiano. Soft tissues: There is prominent muscular edema at the distal left quadratus femoris muscle with partial tear of th e distal tendon. Mild tendinopathy without discrete tear at the distal left iliopsoas tendon. The glu teal and proximal hamstring tendons are normal. The uterus is not identified and has likely been surg ically resected. Gordon catheter in the bladder. Visualized portions of the bowels are unremarkable. 4 .5 cm fusiform infrarenal abdominal aortic aneurysm. No pathologically enlarged pelvic/inguinal lymp hadenopathy. IMPRESSION: 1. 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 2. Partial tear at the distal left quadratus femoris tendon 3. Seromas at both the left and right common femoral artery anastomoses of a femoral-femoral bypass g raft. 4. 4.5 cm fusiform infrarenal abdominal aortic aneurysm. Reviewed, dictated and finalized at location L. BINDING CUTTER IMPRESSION: 1. 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 2. Partial tear at the distal left quadratus femoris tendon 3. Seromas at both the left and right common femoral artery anastomoses of a fe moral-femoral bypass graft. 4. 4.5 cm fusiform infrarenal abdominal aortic aneurysm.
--- NOTE | ~2022-09-28 | CT_ITS ---
EXAMINATION: CT pelvis wo con DATE: 09/28/2022 09:03 INDICATION: Left hip and pelvic pain after fall TECHNIQUE: Computed tomography (CT) of the pelvis was performed without intravenous contrast. The dos e-length product (DLP) was 283.14 mGy-cm. Automated exposure control and iterative reconstruction bryan hnique were employed. COMPARISON: 01/29/2022 FINDINGS: There is a subtle transverse lucency in the anterior cortex of the left femoral head, consi stent with a nondisplaced fracture. There is a stable 4.6 cm fusiform aneurysm of the infrarenal abdo tian aorta. There are changes of interval femoral-femoral bypass graft surgery. There is a 6.4 x 6.1 cm left inguinal fluid collection surrounding the left portion of the graft. There is a small left h ip joint effusion. IMPRESSION: 1. Subtle, nondisplaced transverse fracture in the anterior cortex of the left femoral head 2. Stable fusiform infrarenal abdominal aortic aneurysm. 3. Changes of interval femoral-femoral bypass graft surgery with fluid collection surrounding the lef t portion of the graft. Reviewed, dictated and finalized at location A. RNATIONAL TRADE COMPLIANCE MANAGER IMPRESSION: 1. Subtle, nondisplaced transverse fracture in the anterior cortex of the left femoral head 2. Stable fusiform infrarenal abdominal aortic aneurysm. 3. Changes of interval femoral-femoral bypass graft surgery with fluid collecti on surrounding the left portion of the graft.
--- NOTE | 2022-09-28 08:36 | ED.GENADULT ---
HPI - General Adult General Chief complaint: Extremity Injury, Lower Stated complaint: L hip pain Time Seen by Provider: 09/28/22 08:19 History of Present Illness HPI narrative: 72-year-old female presenting to the emergency department for evaluation of left hip pain. Patient reports approximately 10 days ago she was getting out of bed when she injured her left hip. Patient states she has since had increased pain with movement of the left hip. Patient does have a prior history of peripheral vascular disease and claudication requiring stent. Patient states this does not feel like a similar pain. Patient did have additional stents placed on April 25 at [facility] by Dr Che but now follows with Dr Hernadez. Patient denies any associated chest pain or shortness of breath. Patient states she does walk with a walker but states that even this is impaired with her pain. During the initial injury patient denies striking head denies any loss of consciousness. Related Data Home Medications Medication Instructions Recorded Confirmed aspirin 81 mg tablet,delayed 81 mg PO DAILY 10/19/19 08/04/22 release (Adult Aspirin Regimen) clopidogrel 75 mg tablet (Plavix) 75 mg PO DAILY 03/25/22 08/04/22 levothyroxine 75 mcg tablet 75 mcg PO DAILY 08/27/22 Allergies Allergy/AdvReac Type Severity Reaction Status Date / Time clindamycin Allergy Severe Rash Verified 09/28/22 08:25 gabapentin Allergy Rash Verified 09/28/22 08:25 baclofen AdvReac Unknown sleepy Verified 09/28/22 08:25 [id number]-UdO Reductase AdvReac Unknown myalgia Verified 09/28/22 08:25 Inhibitor Review of Systems Review of Systems: CONSTITUTIONAL: Denies fever, chills, or sweats. EYES: Denies visual changes, redness, or discharge. ENT: Denies rhinorrhea, congestion, sore throat, or otalgia. CARDIOVASCULAR: Denies chest pain, palpitations, or edema. RESPIRATORY: Denies cough or dyspnea. GASTROINTESTINAL: Denies abdominal pain, nausea, vomiting, or diarrhea. GENITOURINARY: Denies dysuria or hematuria. SKIN: Denies rash or itching. MUSCULOSKELETAL: See HPI NEUROLOGIC: Denies headache, numbness, or weakness. [facility] Past Medical History Medical History (Updated 09/28/22 @ 18:39 by Woody Mejia MD) GERD (gastroesophageal reflux disease) Hemorrhoids History of diverticulitis History of stomach ulcers HTN (hypertension) Normal colonoscopy 07/01 Repeat 07/06 Pneumonia due to 2019 novel coronavirus Sepsis Thyroid disease Surgical History Surgical History (Updated 08/13/22 @ 07:45 by Kg White MD) History of colectomy 2019 diverticular abscess History of total abdominal hysterectomy (2019) 2019 (during sigmoid colectomy) Family History Family History Mother Colon cancer Carcinoma of colon Colon polyp Hypertension Father Emphysema/COPD Sibling Heart disease Diabetes mellitus Hypertension Unknown No problems noted. Daughter Diabetes mellitus Daughter Diabetes mellitus Heart disease Hypertension Grandparent Diabetes mellitus Malignant neoplasm of prostate Sibling Hypertension Social History Social History Social History: She is independent in activities of daily living. She still works at [employer] 3 days a week. She is a former smoker and smoked 1 pack per day for 50 years but quit smoking in 2015. She rarely drinks alcohol and only in moderation. She denies illicit substance use. She has been for 26 years. Primary care physician: Dr. Kg Chaney Code status: Full code Surrogate decision maker: Roxane (daughter) Smoking packs per day: 1 Smoking cigarettes per day: 20.0 Years smoked: 50 Smoking pack-years: 50.00 Smoking status: Former smoker Tobacco type: cigarettes Smoking end date: 10/12/15 Alcohol intake: never Substance use: never Substance use
[2022-09-28 09:48] LABS: Basophils Percent Auto 0.2 % (0.2-1.2); Eosinophils Absolute Auto 0.1 K/mm3 (0-0.3); Eosinophils Percent Auto 2.8 % (0-4.4); Hematocrit 23.8 % (37.0-47.0); Immature Granulocyte Absolute 0.04 K/mm3 (0.00-0.031); Immature Granulocyte Percent A 0.8 % (0-0.5); Lymphocytes Absolute Auto 0.68 K/mm3 (0.9-3.2); Lymphocytes Percent Auto 13.5 % (18.3-44.2); Mean Corpuscular HGB Conc 26.9 g/dl (32-36); Mean Corpuscular Hemoglobin 20.1 pg (26-34); Mean Corpuscular Volume 74.6 fl (80-100); Monocytes Absolute Auto 0.5 K/mm3 (0.1-0.6); Monocytes Percent Auto 9.9 % (2.6-8.5); Neutrophils Absolute Auto 3.7 K/mm3 (1.3-6.7); Neutrophils Percent Auto 72.8 % (45.5-73.1); Platelet Count Result 271 k/mm3 (150-375); Red Blood Count 3.19 M/mm3 (4.2-5.4); Red Cell Distribution Width 18.8 % (11.5-14.5); White Blood Count 5.1 K/mm3 (4.5-10.0)
[2022-09-28 09:54] LABS: Hemoglobin 6.4 g/dL (12.0-15.0)
[2022-09-28] MEDS: MORPHINE SULFATE (*CRX) 2 MG/ML INJ IV PUSH (10:06)
[2022-09-28 10:07] LABS: Alanine Aminotransferase 11 U/L (6-35); Albumin Level 3.8 g/dL (3.5-5.1); Alkaline Phosphatase 88 U/L (38-126); Anion Gap 6 mmol/L (8-16); Aspartate Amino Transferase 18 U/L (14-36); Bilirubin,Total 0.3 mg/dL (0.2-1.3); Blood Urea Nitrogen 18 mg/dL (7-17); Calcium 8.4 mg/dL (8.4-10.2); Carbon Dioxide 23 mmol/L (22-30); Chloride 113 mmol/L (98-107); Estimated CRCL calculation 46 ml/min; Estimated Glomerular Filt Rate > 60; Glucose 108 mg/dL (65-110); Potassium 3.9 mmol/L (3.4-5.0); Sodium 142 mmol/L (137-145)
[2022-09-28 10:12] LABS: Hematocrit 23.1 % (37.0-47.0)
[2022-09-28 10:19] LABS: Hemoglobin 6.2 g/dL (12.0-15.0)
[2022-09-28 10:22] LABS: Anisocytosis 2+ (NORMAL); Hypochromasia 1+ (NORMAL); Platelet Estimate Adequate (Adequate); Schistocytes None Seen (NORMAL)
[2022-09-28 10:24] LABS: Poikilocytosis 1+ (NORMAL)
[2022-09-28 10:49] LABS: Influenza A QL RT-PCR Negative (Negative); Influenza B QL RT-PCR Negative (Negative); SARS-CoV-2 RNA PCR Negative
[2022-09-28] MEDS: BELLADONNA ALK/PHENOB ELIX 10 ML, MAG HYDROX/ALUMINUM HYD/SIMETH 30 ML, LIDOCAINE HCL 2... PO (10:57)
[2022-09-28] MEDS: HYDROmorphone HCL INJ (*CRX) 1 MG/ML SYR 0.5 MG IV PUSH ×3 (10:58→23:07)
[2022-09-28] MEDS: PANTOPRAZOLE SODIUM IV 40 MG VIAL IV PUSH ×2 (10:58→23:48)
--- NOTE | 2022-09-28 11:05 | PC.NURSE ---
HOLLI Mejia made aware of pt's BP.
[2022-09-28] MEDS: SODIUM CHLORIDE 0.9% IV 250 ML 30 ML IV CONT (13:03)
[2022-09-28] MEDS: TUBING, BLOOD PLUM PUMP TUBING 1 EACH XX (13:15)
--- NOTE | 2022-09-28 15:00 | PM.IMHP ---
H&P: HPI History of Present Illness Date/Time: 09/28/22 15:00 Chief Complaint: Left hip pain. Narrative: This is a 72-year-old female with peripheral vascular disease status post femoral femoral bypass, hypertension, anemia, GERD with remote history of peptic ulcers, and hypothyroidism who presented to the ED for evaluation of left hip pain. It is not unusual for her to have cramps in her legs at night and about a week ago she jumped out of bed due to severe cramps and she nearly fell on the floor but was able to catch herself however ?I nearly did the splits? and she has had pain in the left lateral hip since that time. She is unable to describe the pain and reports that is worse with movement and weight-bearing, somewhat improved while sitting. She has been taking ibuprofen mostly but at times will take Tylenol. Unfortunately the pain continues to get worse and she is having difficulties ambulating even with a walker. Pelvic CT showed a subtle, nondisplaced transverse fracture in the anterior cortex of the left femoral head and also noted changes of abdominal-femoral bypass graft surgery with fluid correction surrounding the left portion of the graft. A subsequent CTA of the abdomen/pelvis showed no abnormal enhancement or contrast extravasation and these previous findings were thought to be related to postsurgical changes. Labs were significant for a hemoglobin and hematocrit of 6.2 and 23.1% respectively. She has not noticed any blood loss and she specifically denies melena and hematochezia. Stool was Hemoccult negative on rectal exam done in the emergency department. If further questioning however she has had abdominal bloating, belching, and an increase in GERD symptoms recently. She is being admitted in this setting for further treatment and evaluation. Review of Systems Review of Systems: Twelve systems were reviewed. She denies fever, chills, and sweats. No epistaxis. No cold or flu symptoms. She denies chest pain shortness a breath. No lightheadedness or dizziness. She has had some nausea but no vomiting. No melena or hematochezia. No hematuria. Except as documented, all other systems were reviewed and are negative. [facility] Past Medical History Medical History (Updated 09/28/22 @ 20:39 by Elina Borrero PA-C) Abdominal aortic aneurysm Atherosclerotic heart disease of [place] coronary artery without angina pectoris Chronic anemia Diverticulitis Gastroesophageal reflux disease Hemorrhoids Hypertension Hypothyroidism Lichen planus, unspecified Normal colonoscopy (06/2020) Due for repeat colonoscopy in June 2025. 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 Status post femoral-popliteal bypass surgery (03/2022) Family History Family History Mother Colon cancer Carcinoma of colon Colon polyp Hypertension Father Emphysema/COPD Sibling Heart disease Diabetes mellitus Hypertension Unknown No problems noted. Daughter Diabetes mellitus Daughter Diabetes mellitus Heart disease Hypertension Grandparent Diabetes mellitus Malignant neoplasm of prostate Sibling Hypertension Social History Social History (Updated 09/28/22 @ 20:37 by Elina Borrero PA-C) Social History: Surrogate decision maker: Valorie Sams, daughter. Code status: Full code Smoking packs per day: 1 Smoking cigarettes per day: 20.0 Years smoked: 50 Smoking p
--- NOTE | 2022-09-28 15:40 | PC.NURSE ---
ordered pt heart healthy tray.
[2022-09-28 16:47] LABS: Reticulocyte Hemoglobin Conten 18.5 pg (28.2-35.7); Reticulocyte Percent 2.09 % (0.7-4.3); Reticulocytes Absolute 0.07 B/L (32.2-175.7)
[2022-09-28] MEDS: hydrALAZINE HCL 20 MG/ML VIAL 10 MG IV PUSH (18:10)
[2022-09-28] MEDS: lisinopriL 20 MG TABLET PO (18:10)
[2022-09-28] MEDS: METOPROLOL SUCCINATE EXT REL 100 MG TABCR PO (18:24)
[2022-09-28 18:48] LABS: Total Triiodothyronine (T3) 0.93 NG/ML (0.97-1.69)
--- NOTE | 2022-09-28 20:07 | ADMGEN ---
This patient, Malena Walters, was admitted to [facility] Surg Room 332-01. Patient/family oriented to hospital policies and general routines including ID bracelet, bed and alarms, visiting hours, pain management, procedures, bathroom and other care routines, personal items, smoking policy, room service/diet, and visiting hours. Information on how to activate the Rapid Response Team has been discussed. Patient/Family are encouraged to report perceived risks to care and to ask questions if they do not understand what they are told or what they should do.
--- NOTE | 2022-09-28 20:12 | PC.NURSE ---
blood was transfused at 1914.
[2022-09-29] MEDS: HYDROmorphone HCL INJ (*CRX) 1 MG/ML SYR 0.5 MG IV PUSH (02:57)
[2022-09-29 06:00] VITALS: BP 196/54; PULSE 67; RESP 18; TEMP 36.8; O2SAT 93
[2022-09-29] MEDS: HYDROcodone/acetaminophen (*CRX) 5-325 MG TABLET 1 TAB PO ×4 (07:56→21:14)
[2022-09-29] MEDS: PANTOPRAZOLE SODIUM IV 40 MG VIAL IV PUSH ×2 (09:01→21:16)
[2022-09-29 10:10] LABS: Hematocrit 31.1 % (37.0-47.0); Hemoglobin 9.4 g/dL (12.0-15.0); Mean Corpuscular HGB Conc 30.2 g/dl (32-36); Mean Corpuscular Hemoglobin 22.3 pg (26-34); Mean Corpuscular Volume 73.9 fl (80-100); Mean Platelet Volume 10.4 fl (7.4-10.4); Platelet Count Result 276 k/mm3 (150-375); Red Blood Count 4.21 M/mm3 (4.2-5.4); Red Cell Distribution Width 18.5 % (11.5-14.5); White Blood Count 7.8 K/mm3 (4.5-10.0)
[2022-09-29 10:20] LABS: Anion Gap 4 mmol/L (8-16); Blood Urea Nitrogen 11 mg/dL (7-17); Calcium 8.4 mg/dL (8.4-10.2); Carbon Dioxide 27 mmol/L (22-30); Chloride 103 mmol/L (98-107); Estimated CRCL calculation 55 ml/min; Estimated Glomerular Filt Rate > 60; Glucose 120 mg/dL (65-110); Potassium 3.7 mmol/L (3.4-5.0); Sodium 134 mmol/L (137-145)
[2022-09-29 11:42] VITALS: PULSE 81
[2022-09-29] MEDS: METOPROLOL SUCCINATE EXT REL 100 MG TABCR PO (11:42)
[2022-09-29] MEDS: hydroCHLOROthiazide 12.5 MG CAPSULE PO (11:43)
--- NOTE | 2022-09-29 11:48 | PM.CNOR ---
Assessment and Plan Assessment and plan (1) AVN of femur: Code(s): M87.059 - Idiopathic aseptic necrosis of unspecified femur Status: Acute Assessment and Plan: patient is a 72-year-old female, Long time patient of Dr. Chaney, who presented to the emergency room last evening complaining of intractable left groin pain. . She 1st noticed this pain but much milder 4-6 weeks ago. It had been gradually getting more severe. Then starting about 4 days ago it became intolerable. She has been using a Rollator walker and has been unable to bear full weight on it. There was an incident approximately 10 days ago where she had a severe leg cramps and jumped out of bed quickly and somehow her leg gave way and she ended up partially doing the splits but she recovered without falling. Her left groin pain was a little bit worse with that and remained worse until it became intolerably severe 4 days ago and she came to the emergency room last night. patient has a history of chronic lower back pain. The groin pain was never present until about 4 6 weeks ago when it started mildly. Pertinent past medical history is significant for a femoral to femoral bypass graft performed in April at [facility] in [address] [place] [address]. They were planning to transfer the patient there last night but there hospital was full. CT scan was obtained left hip after plain x-rays showed a possible linear lucency subchondral at the anterolateral left femoral head and the CT scan showed the lucency is in fact a fracture running proximal to distal over the anterolateral aspect of the femoral head with a slight medial proximal to lateral distal tilt to the plane which is in close to a sagittal orientation. The CT scan also showed a 5 cm seroma anterior to the femoral artery on the left side the smaller seroma anterior to the femoral artery on the right side. 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 Patient presented earlier this year for vascular bypass when she developed gangrene of the right great toe. It turned purple. She still has herright great toe and it looks fine now so it recovered. Patient's past medical history is significant for a long smoking history. She smoked for 50 years and quit smoking 7 years ago. She has occlusive disease of bilateral carotid arteries, hypercholesterolemia, history of peptic ulcer, large but unchanged abdominal aortic aneurysm which was seen well on CT scan of the hip. Coronary artery atherosclerosis and chronic anemia. Patient came in with a hemoglobin of 6 and she received 2 units of packed red blood cells last night. Her hemoglobin is up to 9.4 this morning. because of her anemia certainly needs to be thoroughly evaluated and hopefully can be addressed. Her anemia is not thought to be due to bleeding abdominal aortic aneurysm or bleeding femoral artery bypass anastomosis based on the findings that show no evidence of this on the CT angiogram of the abdomen. On exam she has severe groin pain with range of motion of left hip. She denies numbness or tingling left foot. The left foot is warm has normal capillary refill pain to slightly rubor is but I cannot feel any pedal pulses.She is alert and oriented. 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 Etiology is not clear. May be related to smoking. May be related to occlusive arterial disease. No history of steroid use or alcoholism. I would recommend obtaining an MRI scan of her left hip for accurate diagnosis. This will also give images of the right hip as it may be a bilateral condition but she is asymptomatic relative to the right hip at this time. Patient can be mobilized and be touch weight-bearing on the left leg. She has SCDs in place. She takes Plavix and baby
[2022-09-29 12:22] VITALS: O2SAT 97
[2022-09-29 14:00] VITALS: BP 166/48; PULSE 58; RESP 17; TEMP 36.6; O2SAT 94
--- NOTE | 2022-09-29 16:07 | PM.IMPN ---
Progress Note: A&P Assessment and Plan (1) Acute on chronic anemia: Code(s): D64.9 - Anemia, unspecified Status: Acute Assessment and Plan: Surprisingly she does not seem symptomatic. Stool was reportedly Hemoccult negative on rectal exam done in the ED however she has had increasing abdominal bloating, belching, and GERD Patient on DAPT Due to high suspiscion for GI bleed FOBT and GI cosulted Continue IV Protonix until evaluated by GI (2) Closed fracture of head of left femur: Code(s): S72.052A - Unspecified fracture of head of left femur, initial encounter for closed fracture Status: Acute Assessment and Plan: r/o Avascular necrosis, Pelvic CT shows a subtle, nondisplaced transverse fracture in the anterior cortex of the left femoral head. Dr Clay was able to convince patient for MRI exam MRi pending Ortho following (3) Gastroesophageal reflux disease: Code(s): K21.9 - Gastro-esophageal reflux disease without esophagitis Status: Acute Assessment and Plan: She has been started on pantoprazole as detailed above. (4) Hypertension: Code(s): I10 - Essential (primary) hypertension Status: Acute Assessment and Plan: Blood pressures have been running in the 190s systolic. She did not take her metoprolol this morning. She goes on to say that her lisinopril was discontinued within the last month as her blood pressures were running a bit low however this may very well need to be resumed. She was given 1 time dose of metoprolol and lisinopril in the ED. (5) Hypothyroidism: Code(s): E03.9 - Hypothyroidism, unspecified Status: Acute Assessment and Plan: Continue levothyroxine and check TSH. (6) Peripheral vascular disease: Code(s): I73.9 - Peripheral vascular disease, unspecified Status: Acute Assessment and Plan: Status post femoral-femoral bypass in March 2022. Continue aspirin and clopidogrel for now. I do not see that she is on a statin. Subjective Date/time seen: 09/29/22 16:07 Patient was seen and evaluated at bedside this morning, stated firmly she will not do the MRI citing claustrophobbia and physiscal weakness following study in the past. Noted hip pain but denies any chest pain SOB, or cough. Review of Systems Review of Systems: All systems reviewed & are unremarkable except as noted in HPI and below Musculoskeletal: Comments: limted range of motion LLE due to pain Exam Const: Other: Well-developed, nontoxic-appearing female sitting up in bed. Weight: 68 kilograms. BMI: 29.3. HENMT: Other: Normocephalic, atraumatic. Nares pain bilaterally. Moist mucous membranes. Eyes: Other: Wearing glasses. Pupils are reactive. Extraocular motions intact. Sclerae anicteric. Neck: Other: Supple. No JVD. Resp: Other: Respirations are nonlabored and lungs are clear to auscultation. Cardio: Other: Regular rate rhythm with normal S1-S2. GI: Other: Abdomen is soft, nontender, nondistended with positive bowel sounds. Skin: Other: Warm and dry. Neuro: Other: Alert. Cranial nerves 2-12 are grossly intact. No gross focal deficits to casual conversation. Extrem: Other: tenderness to palpation over the left lateral hip with unable to move due pain . Psych: Other: Pleasant and cooperative with appropriate mood and affect. Objective Data Vital Signs Vital Signs: Vital Signs - 24 hr 09/28/22 16:17 09/28/22 18:24 09/28/22 16:13 Temperature 97.6 F Pulse Rate 65 71 67 Respiratory Rate 17 19 Blood Pressure 197/70 H 197/70 H Pulse Oximetry 97 100 Oxygen Delivery 09/28/22 16:15 09/28/22 16:30 09/28/22 16:31 Temperature Pulse Rate 64 72 70 Respiratory Rate 19 18 23 H Blood Pressure 215/75 H Pulse Oximetry 97 100 98 Oxygen Delivery 09/28/22 16:45 09/28/22 17:00 09/28/22 17:15 Temperature Pulse Rate 64 60 65 Respiratory Rate
[2022-09-29 20:00] VITALS: PULSE 54; RESP 20; O2SAT 94
[2022-09-29] MEDS: SENNA/DOCUSATE SODIUM TABLET 2 TAB PO (21:16)
[2022-09-29 22:00] VITALS: BP 172/69; PULSE 54; RESP 20; TEMP 36.6; O2SAT 94
[2022-09-30] VITALS (10 sets, daily range): BP systolic 159–194; BP diastolic 42–88; PULSE 50–70; RESP 17–21; TEMP 35.9–36.8; O2SAT 93–98
[2022-09-30] MEDS: HYDROcodone/acetaminophen (*CRX) 5-325 MG TABLET 1 TAB PO ×3 (04:26→21:20)
[2022-09-30 07:03] LABS: Basophils Percent Auto 0.3 % (0.2-1.2); Eosinophils Absolute Auto 0.1 K/mm3 (0-0.3); Eosinophils Percent Auto 1.3 % (0-4.4); Immature Granulocyte Absolute 0.03 K/mm3 (0.00-0.031); Immature Granulocyte Percent A 0.4 % (0-0.5); Lymphocytes Absolute Auto 0.85 K/mm3 (0.9-3.2); Lymphocytes Percent Auto 11.5 % (18.3-44.2); Mean Corpuscular HGB Conc 29.4 g/dl (32-36); Mean Corpuscular Hemoglobin 21.9 pg (26-34); Mean Corpuscular Volume 74.6 fl (80-100); Mean Platelet Volume 9.8 fl (7.4-10.4); Monocytes Absolute Auto 0.7 K/mm3 (0.1-0.6); Monocytes Percent Auto 8.8 % (2.6-8.5); Neutrophils Absolute Auto 5.8 K/mm3 (1.3-6.7); Neutrophils Percent Auto 77.7 % (45.5-73.1); Platelet Count Result 264 k/mm3 (150-375); Red Blood Count 4.56 M/mm3 (4.2-5.4); Red Cell Distribution Width 19.2 % (11.5-14.5); White Blood Count 7.4 K/mm3 (4.5-10.0)
[2022-09-30 07:15] LABS: Alanine Aminotransferase 11 U/L (6-35); Albumin Level 3.8 g/dL (3.5-5.1); Alkaline Phosphatase 75 U/L (38-126); Anion Gap 7 mmol/L (8-16); Aspartate Amino Transferase 20 U/L (14-36); Bilirubin,Total 0.8 mg/dL (0.2-1.3); Blood Urea Nitrogen 15 mg/dL (7-17); Calcium 8.7 mg/dL (8.4-10.2); Carbon Dioxide 26 mmol/L (22-30); Chloride 104 mmol/L (98-107); Estimated CRCL calculation 48 ml/min; Estimated Glomerular Filt Rate > 60; Glucose 103 mg/dL (65-110); Potassium 3.6 mmol/L (3.4-5.0); Sodium 137 mmol/L (137-145)
[2022-09-30] MEDS: ACETAMINOPHEN 325 MG TABLET 650 MG PO (07:41)
[2022-09-30] MEDS: METOPROLOL SUCCINATE EXT REL 100 MG TABCR PO (07:42)
[2022-09-30] MEDS: PANTOPRAZOLE SODIUM IV 40 MG VIAL IV PUSH ×2 (07:51→20:53)
[2022-09-30 08:51] LABS: Platelet Estimate Adequate (Adequate)
[2022-09-30 08:52] LABS: Anisocytosis 1+ (NORMAL); Hypochromasia 1+ (NORMAL); Microcytosis 1+ (NORMAL); Ovalocytes 1+ (NORMAL); Schistocytes None Seen (NORMAL); Tear Drop Cells 1+ (NORMAL)
--- NOTE | 2022-09-30 09:43 | WPDGICN ---
Assessment and Plan Assessment and plan (1) Acute on chronic anemia: Code(s): D64.9 - Anemia, unspecified Status: Acute Assessment and Plan: Patient with chronic anemia presents with persistent anemia with a decline in hemoglobin. No obvious blood loss described by patient. Stool Hemoccult negative. Plan is for iron studies. Patient is known to have B12 deficiency. Would recommend hematology follow-up for this. Previous LEEP felt to have anemia of chronic disease. This may be related to her AVN, peripheral vascular disease and recent vascular surgery. An EGD will be performed today is that she does have dyspeptic symptoms. Recent EGD was relatively unremarkable she has received these at intervals in the past and should continue them in at least 5 year intervals. Will Consider repeat colonoscopy if hematology requests this. sooner, but this should be deferred given her current active hip pain and possible fracture and or AVN. (2) AVN of femur: Code(s): M87.059 - Idiopathic aseptic necrosis of unspecified femur Status: Acute (3) Peripheral vascular disease: Code(s): I73.9 - Peripheral vascular disease, unspecified Status: Acute Assessment and Plan: History of fem-fem bypass this summer. 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 (5) Family history of colon cancer in mother: Code(s): Z80.0 - Family history of malignant neoplasm of digestive organs Status: Acute Assessment and Plan: Patient's mother had colon cancer. Plan for colonoscopy at least at 5 year intervals. GI Consult Note Consult date/time: 09/30/22 09:43 Reason for consult: Chronic anemia HPI: Malena Walters is a 72 year old female has an underlying history of peripheral vascular disease with a history of femoral femoral bypass this summer. Patient admitted the hospital with hip pain found to have avascular necrosis of the left hip. Patient also noted to have rather profound microcytic anemia. Patient is chronically anemia could. She denies any obvious blood in her stools. She underwent on unremarkable colonoscopy in 2020. Stool was Hemoccult negative at that time. Repeat stool Hemoccult at this admission is also negative. Patient does complain of some epigastric bloating and discomfort. For this reason follow-up EGD is advised. She has not seen Hematology recently. When seen a year 2 ago was felt to have anemia of chronic disease. Iron studies not performed at this admission because of transfusion. Patient does have a prior history of sigmoid resection because of diverticular colitis. At that time she had a colo vaginal fistula. Additionally patient's mother has had colon cancer prompting screening colonoscopies intermittently. At 1 point patient did have a colon polyp. Review of Systems Review of Systems: Review of systems noncontributory. [facility] Past Medical History Medical History (Updated 09/30/22 @ 09:46 by Francisco Javier Arreaga MD) Abdominal aortic aneurysm Atherosclerotic heart disease of [place] coronary artery without angina pectoris Chronic anemia Diverticulitis Gastroesophageal reflux disease Hemorrhoids Hypertension Hypothyroidism Lichen planus, unspecified Normal colonoscopy (06/2020) Due for repeat colonoscopy in June 2025. Occlusion and stenosis of bilateral carotid arteries Peptic ulcer Peripheral vascular disease Pneumonia due to 2018 novel coronavirus Pure hypercholesterolemia, unspecified Surgical History Surgical History (Updated 09/30/22 @ 09:46 by Francisco Javier Arreaga MD) History of colectomy (2019) Sigmoid colectomy with total hysterectomy for diverticular abscess with colovaginal fistula. History of colono
[2022-09-30] MEDS: LACTATED RINGERS 1,000 ML 150 ML IV CONT (09:46)
--- NOTE | 2022-09-30 10:31 | PCPTNOTE ---
The patient treatment was not able to be completed due to patient out of room for testing. Will plan to continue treatment per plan of care.
--- NOTE | 2022-09-30 10:42 | WPDANESEPPF ---
Anes - Initial Pre Proc Eval Procedure: Operation Date: 09/30/22 11:30 Proposed Procedures p Esophagogastroduodenoscopy - Francisco Javier Arreaga MD Date/Time: 09/30/22 10:42 Surgeon: Freddy Bowden MD Pre Op Diagnosis: Left Hip Fracture, Anemia Patient Data Age: 72 Gender: F Height: 1.57 m Weight: 67.4 kg Last Vital Signs Temp 36.2 C L 09/30/22 09:44 Pulse 60 09/30/22 09:44 Resp 18 09/30/22 09:44 BP 185/76 H 09/30/22 09:44 Pulse Ox 95 09/30/22 09:44 O2 Del Method Room Air 09/30/22 09:44 Allergies Allergy/AdvReac Type Severity Reaction Status Date / Time clindamycin Allergy Severe Rash Verified 09/28/22 08:25 gabapentin Allergy Rash Verified 09/28/22 08:25 baclofen AdvReac Unknown sleepy Verified 09/28/22 08:25 [id number] Reductase AdvReac Unknown myalgia Verified 09/28/22 08:25 Inhibitor Home Medications Medication Instructions Recorded Confirmed Type aspirin 81 mg tablet,delayed 81 mg PO DAILY 10/19/19 09/28/22 History release (Adult Aspirin Regimen) clopidogrel 75 mg tablet (Plavix) 75 mg PO DAILY 03/25/22 09/28/22 History metoprolol succinate 100 mg 100 mg PO DAILY #30 tabs 05/28/22 09/28/22 Rx tablet,extended release 24 hr Euthyrox 75 mcg BYMOUTH DAILY 09/28/22 09/28/22 History lorazepam 1 mg tablet 0.5 mg PO HS 09/28/22 09/28/22 History pantoprazole 20 mg tablet,delayed 1 mg DAILY 09/28/22 09/28/22 History release Laboratory Tests 09/30/22 09/30/22 06:38 06:38 WBC 7.4 K/mm3 K/mm3 (4.5-10.0) RBC 4.56 M/mm3 M/mm3 (4.2-5.4) Hgb 10.0 g/dL L g/dL (12.0-15.0) Hct 34.0 % L % (37.0-47.0) MCV 74.6 fl L fl (80-100) MCH 21.9 pg L pg (26-34) MCHC 29.4 g/dl L g/dl (32-36) RDW 19.2 % H % (11.5-14.5) Plt Count 264 k/mm3 k/mm3 (150-375) MPV 9.8 fl fl (7.4-10.4) Immature Gran % (Auto) 0.4 % % (0-0.5) Neut % (Auto) 77.7 % H % (45.5-73.1) Lymph % (Auto) 11.5 % L % (18.3-44.2) [place] % (Auto) 8.8 % H % (2.6-8.5) Eos % (Auto) 1.3 % % (0-4.4) Baso % (Auto) 0.3 % % (0.2-1.2) Lymph # (Auto) 0.85 K/mm3 L K/mm3 (0.9-3.2) [place] # (Auto) 0.7 K/mm3 H K/mm3 (0.1-0.6) Eos # (Auto) 0.1 K/mm3 K/mm3 (0-0.3) Baso # (Auto) 0.0 K/mm3 K/mm3 (0.0-0.1) Abs Immat Gran (auto) 0.03 K/mm3 K/mm3 (0.00-0.031) Absolute Neuts (auto) 5.8 K/mm3 K/mm3 (1.3-6.7) Absolute Nucleated RBC 0.0 K/mm3 K/mm3 (0.0-0.012) Nucleated RBC % 0.0 % % (0.0-0.2) Platelet Estimate Adequate (Adequate) Hypochromasia 1+ (NORMAL) Anisocytosis 1+ (NORMAL) Microcytosis 1+ (NORMAL) Tear Drop Cells 1+ (NORMAL) Ovalocytes 1+ (NORMAL) Schistocytes None seen (NORMAL) Sodium 137 mmol/L mmol/L (137-145) Potassium 3.6 mmol/L mmol/L (3.4-5.0) Chloride 104 mmol/L mmol/L (98-107) Carbon Dioxide 26 mmol/L mmol/L (22-30) Anion Gap 7 mmol/L L mmol/L (8-16) BUN 15 mg/dL mg/dL (7-17) Creatinine 0.80 mg/dL mg/dL (0.7-1.0) Estim Creat Clear Calc 48 ml/min ml/min Estimated GFR > 60 (59 - ) Glucose 103 mg/dL mg/dL (65-110) Calcium 8.7 mg/dL mg/dL (8.4-10.2) Total Bilirubin 0.8 mg/dL mg/dL (0.2-1.3) AST 20 U/L U/L (14-36) ALT 11 U/L U/L (6-35) Alkaline Phosphatase 75 U/L U/L (38-126) Total Protein 7.0 g/dL g/dL (6.3-8.2) Albumin 3.8 g/dL g/dL (3.5-5.1) Patient hx anesthesia problems: none Family hx anesthesia problems: none Results Review: All pre-operative results and documents have been reviewed as part of the pre-operative evaluation. [facility] Past Medical History Medical History (Updated 09/30/22 @ 09:46 by Francisco Javier Arreaga MD) Abdominal aortic aneurysm Atherosclerotic heart disease of [place] coronar
[2022-09-30] MEDS: fentaNYL CITRATE INJ (*CRX) 100 MCG/2 ML VIAL 50 MCG IV PUSH (10:51)
[2022-09-30 11:30] LABS: Iron 21 ug/dL (37-170)
[2022-09-30 11:40] LABS: Percent Iron Saturation 6 % (20-50)
[2022-09-30] MEDS: hydroCHLOROthiazide 12.5 MG CAPSULE PO (12:43)
--- NOTE | 2022-09-30 14:32 | PCPTNOTE ---
PT attempted to see patient this afternoon, however patient declined PT. Patient states she feels very fatigued. Patient states she sat up in chair after testing this morning and stated she was very tired and requested to go back to bed. PT will continue to follow per plan of care.
--- NOTE | 2022-09-30 17:20 | PM.IMPN ---
Progress Note: A&P Assessment and Plan (1) Acute on chronic anemia: Code(s): D64.9 - Anemia, unspecified Status: Acute Assessment and Plan: Surprisingly she does not seem symptomatic. Stool was reportedly Hemoccult negative on rectal exam done in the ED however she has had increasing abdominal bloating, belching, and GERD Patient on DAPT FOBT negative Continue IV Protonix GI following (2) Gastroesophageal reflux disease: Code(s): K21.9 - Gastro-esophageal reflux disease without esophagitis Status: Acute Assessment and Plan: She has been started on pantoprazole as detailed above. (3) Hypertension: Code(s): I10 - Essential (primary) hypertension Status: Acute Assessment and Plan: Blood pressures have been running in the 190s systolic. She did not take her metoprolol this morning. She goes on to say that her lisinopril was discontinued within the last month as her blood pressures were running a bit low however this may very well need to be resumed. She was given 1 time dose of metoprolol and lisinopril in the ED. Continue Metoprolol and HCTZ monitor and adjust (4) Hypothyroidism: Code(s): E03.9 - Hypothyroidism, unspecified Status: Acute Assessment and Plan: Continue levothyroxine and check TSH. (5) Peripheral vascular disease: Code(s): I73.9 - Peripheral vascular disease, unspecified Status: Acute Assessment and Plan: Status post femoral-femoral bypass in March 2022. Continue aspirin and clopidogrel for now. I do not see that she is on a statin. (6) AVN (avascular necrosis of bone): Code(s): M87.00 - Idiopathic aseptic necrosis of unspecified bone Status: Acute Assessment and Plan: MRi showed externsive AVN of the left femoral head with effusion and distal left quadratus tendon tear COntiue pain control ortho following (7) AAA (abdominal aortic aneurysm): Qualifiers: Presence of rupture: without rupture Qualified Code(s): I71.4 - Abdominal aortic aneurysm, without rupture Code(s): I71.4 - Abdominal aortic aneurysm, without rupture Status: Acute Assessment and Plan: monitor and continue blood pressure control f/u withi cardiology outpatient (8) Seroma: Status: Acute Plan s/p fem-fem bypass iin March, now with seroma monitor Subjective Date/time seen: 09/30/22 17:20 Review of Systems Review of Systems: Seen in the morning, still complained of pain in left hip, no chest pain, SOB, abd pain ro diarrhea. All systems reviewed & are unremarkable except as noted in HPI and below Exam Const: Other: Well-developed, nontoxic-appearing female sitting up in bed. Weight: 68 kilograms. BMI: 29.3. HENMT: Other: Normocephalic, atraumatic. Nares pain bilaterally. Moist mucous membranes. Eyes: Other: Wearing glasses. Pupils are reactive. Extraocular motions intact. Sclerae anicteric. Neck: Other: Supple. No JVD. Resp: Other: Respirations are nonlabored and lungs are clear to auscultation. Cardio: Other: Regular rate rhythm with normal S1-S2. GI: Other: Abdomen is soft, nontender, nondistended with positive bowel sounds. Skin: Other: Warm and dry. Neuro: Other: Alert. Cranial nerves 2-12 are grossly intact. No gross focal deficits to casual conversation. Extrem: Other: tenderness to palpation over the left lateral hip with unable to move due pain . Psych: Other: Pleasant and cooperative with appropriate mood and affect. Objective Data Vital Signs Vital Signs: Vital Signs - 24 hr 09/29/22 22:00 09/29/22 20:00 09/30/22 06:00 Temperature 97.8 F 98.2 F Pulse Rate 54 L 54 L 62 Respiratory Rate 20 20 20 Blood Pressure 172/69 H 163/80 H Pulse Oximetry 94 94 96 Oxygen Delivery Room Air 09/30/22 07:42 09/30/22 09:44 09/30/22 11:46 Temperature 97.2 F L Pulse Rate 70 60 50 L Respiratory Rat
[2022-09-30] MEDS: SENNA/DOCUSATE SODIUM TABLET 2 TAB PO (20:52)
[2022-10-01] MEDS: fentaNYL CITRATE INJ (*CRX) 100 MCG/2 ML VIAL 50 MCG IV PUSH (03:42)
[2022-10-01 06:00] VITALS: BP 176/64; PULSE 57; RESP 20; TEMP 36.4; O2SAT 95
--- NOTE | 2022-10-01 07:13 | PM.PNORT ---
Progress Note: A&P Assessment and Plan (1) AVN (avascular necrosis of bone): Code(s): M87.00 - Idiopathic aseptic necrosis of unspecified bone Status: Acute Assessment and Plan: MRI scan of left hip performed yesterday confirms extensive avascular necrosis of left femoral head with collapse and early fragmentation of anterolateral aspect of femoral head which is the fracture line we can see on CT scan. I have discussed with this patient the treatment for this problem is a total hip replacement. She is scheduled to undergo GI endoscopy evaluation today for assessment of her severe anemia. I have recommended to her that she be transferred after her GI workup, to a facility where they can do her hip replacement and can have vascular surgery service is available in the event that the graft anastomosis from her femoral to femoral bypass becomes damaged. I have discussed these considerations with the patient in detail. Usually a patient would be at home and see an orthopedic surgeon on an outpatient basis for consultation to schedule hip replacement. She does not feel that she can tolerate being at home by herself with a walker because the pain in her hip is so severe when she tries to ambulate and given the necrotic fragment in the femoral head, I can understand why this is so painful so this case might be best served by a direct transfer to another hospital for consideration of total hip replacement 2 hospital where vascular surgical repair of her femoral to femoral bypass graft can be performed on an emergent basis if needed. [facility] Would be 1 option. Subjective Subjective Date/Time Seen: 10/01/22 07:13 Objective Data Vital Signs Vital Signs: Vital Signs - 24 hr 09/30/22 07:42 09/30/22 09:44 09/30/22 11:46 Temperature 36.2 C L Pulse Rate 70 60 50 L Respiratory Rate 18 19 Blood Pressure 185/76 H 166/53 H Pulse Oximetry 95 98 Oxygen Delivery Room Air Room Air 09/30/22 11:56 09/30/22 12:06 09/30/22 13:51 Temperature Pulse Rate 53 L 51 L 51 L Respiratory Rate 17 17 20 Blood Pressure 169/60 H 194/64 H Pulse Oximetry 98 98 95 Oxygen Delivery Room Air Room Air Room Air 09/30/22 14:00 09/30/22 20:00 09/30/22 22:38 Temperature 35.9 C L Pulse Rate 51 L 60 Respiratory Rate 19 21 H Blood Pressure 159/42 H Pulse Oximetry 95 93 Oxygen Delivery Room Air Room Air 09/30/22 22:00 10/01/22 06:00 Temperature 36.7 C 36.4 C Pulse Rate 60 57 L Respiratory Rate 18 20 Blood Pressure 177/88 H 176/64 H Pulse Oximetry 96 95 Oxygen Delivery Intake/Output Intake/Output: Intake & Output 09/28/22 09/29/22 09/30/22 10/01/22 23:59 23:59 23:59 23:59 Intake Total 950 1780 1505 60 Output Total 3200 1625 1350 Balance 421 -0730 -376 -2630 Meds/Results Medications: Active Medications Generic Name Dose Route Start Last Admin Trade Name Freq PRN Reason Stop Dose Admin Acetaminophen 650 mg 09/28/22 20:47 09/30/22 07:41 Acetaminophen 325 Mg Tablet PO 650 mg Q6H PRN Administration Mild Pain (1-3) or Fever Acetaminophen 650 mg 10/01/22 01:38 Acetaminophen 650 Mg Suppository RECTAL Q6H PRN Mild Pain (1-3) or Fever Hydrocodone Bitart/Acetaminophen 1 tab 09/29/22 11:54 09/30/22 21:20 Hydrocodone/Acetaminophen (*Crx) 5-325 Mg Tablet PO 1 tab Q4H PRN Administration Pain Rated 6 or Greater Hydrochlorothiazide 12.5 mg 09/29/22 10:00 09/30/22 12:43 Hydrochlorothiazide 12.5 Mg Capsule PO 12.5 mg QAM LONA Administration Metoprolol Succinate 100 mg 09/29/22 10:00 09/30/22 07:42 Metoprolol Succinate Ext Rel 100 Mg Tabcr PO 100 mg DAILY LONA Administration Ondansetron HCl 4 mg 09/28/22 20:47 Ondansetron Inj 4 Mg/2 Ml Vial IV PUSH Q6H PRN Nausea And Vomiting Pantoprazole Sodium 40 mg 09/28/22 21:00 09/30/22 20:53 Pantoprazole Sodium Iv 40 Mg Vial IV PUSH 40 mg Q1
--- NOTE | 2022-10-01 07:57 | WPDGIPROGNO ---
Progress Note: A&P Assessment and Plan (1) AVN (avascular necrosis of bone): Code(s): M87.00 - Idiopathic aseptic necrosis of unspecified bone Status: Acute Assessment and Plan: Patient with avascular necrosis soft hip that likely will require hip replacement. Patient complains rather significant ongoing pain. At the present time I would defer colonoscopy because of the significant pain she has. Perhaps this can be planned later if anemia persists. (2) Acute on chronic anemia: Code(s): D64.9 - Anemia, unspecified Status: Acute Assessment and Plan: Patient has a chronic anemia. B12 deficiency noted. Now with somewhat of a decline in hemoglobin. But no evidence for bleeding. EGD revealed delayed gastric emptying but no contributing causes for anemia. A colonoscopy was performed within the last several years. But no evidence for significant GI blood loss at that time nor presently. Hematology evaluation may be prudent. (3) History of colon resection: Code(s): Z90.49 - Acquired absence of other specified parts of digestive tract Status: Acute Assessment and Plan: Patient has a distant history of diverticulitis for which she had a partial colon resection. This appears to have healed with no immediate problems described. (4) Family history of colon cancer in mother: Code(s): Z80.0 - Family history of malignant neoplasm of digestive organs Status: Acute Assessment and Plan: Surveillance colonoscopy at 5 year intervals has been suggested. Most recent colonoscopy 2019. Hopefully this can be deferred till her hip has been treated. (5) Gastroesophageal reflux disease: Code(s): K21.9 - Gastro-esophageal reflux disease without esophagitis Status: Acute Assessment and Plan: GE reflux appears to be aggravated by delayed gastric emptying. Plan to continue pantoprazole. Gastric emptying scan is pending. Would suggest adding Reglan after this is accomplished. Brief trial for several months may be prudent. (6) Delayed gastric emptying: Code(s): K30 - Functional dyspepsia Status: Acute Assessment and Plan: Patient found to have retained food by EGD yesterday. Suggest delayed gastric emptying. This likely contributes to her epigastric bloating. No ulcers or other lesions identified. Gastric emptying scan ordered for today. Suggest a brief trial of Reglan for several months with meals. Continue PPI therapy. (7) Vitamin B 12 deficiency: Code(s): E53.8 - Deficiency of other specified B group vitamins Status: Acute Assessment and Plan: Patient has a longstanding history of B12 deficiency. In fact B12 levels are low. Continued B12 replacement is advised. Hematology may be beneficial for follow-up. Plan It is okay for the GI service for patient be transferred for hip replacement surgery if necessary. No additional GI workup anticipated at this time. Subjective Date/time seen: 10/01/22 07:57 Patient continues to complain rather significant left hip pain even at rest. Apparently hip replacement will be anticipated. This is complicated by recent vascular for fem-fem bypass. Patient found to have retained gastric contents which likely contributes to ongoing nausea. No obvious source for GI blood loss. Stool confirmed to be Hemoccult negative. Patient does have history of fairly unremarkable colonoscopy 2 years ago. She has a history of partial colon resection because of previous diverticulitis. patient today does have chronic anemia but hemoglobin has declined recently. Perhaps related to recent vascular surgery and now with hip issues. Iron indices appear to be somewhat deficient. No bleeding reported. Review of Systems Review of Systems: Review of system is noncontributory per Exam Narrative: Physical exam reveals patient be alert. Vital signs stable. Patient lying in bed. Complai
[2022-10-01 08:05] VITALS: PULSE 72
[2022-10-01] MEDS: HYDROcodone/acetaminophen (*CRX) 5-325 MG TABLET 1 TAB PO ×4 (08:05→21:05)
[2022-10-01] MEDS: METOPROLOL SUCCINATE EXT REL 100 MG TABCR PO (08:05)
[2022-10-01] MEDS: hydroCHLOROthiazide 12.5 MG CAPSULE PO (08:05)
[2022-10-01] MEDS: PANTOPRAZOLE SODIUM IV 40 MG VIAL IV PUSH (08:06)
[2022-10-01 11:06] LABS: Basophils Percent Auto 0.1 % (0.2-1.2); Eosinophils Absolute Auto 0.1 K/mm3 (0-0.3); Eosinophils Percent Auto 1.9 % (0-4.4); Hemoglobin 10.1 g/dL (12.0-15.0); Immature Granulocyte Absolute 0.03 K/mm3 (0.00-0.031); Immature Granulocyte Percent A 0.4 % (0-0.5); Lymphocytes Absolute Auto 0.66 K/mm3 (0.9-3.2); Lymphocytes Percent Auto 9.5 % (18.3-44.2); Mean Corpuscular HGB Conc 29.7 g/dl (32-36); Mean Corpuscular Hemoglobin 22.3 pg (26-34); Mean Corpuscular Volume 75.1 fl (80-100); Mean Platelet Volume 9.7 fl (7.4-10.4); Monocytes Absolute Auto 0.8 K/mm3 (0.1-0.6); Monocytes Percent Auto 10.9 % (2.6-8.5); Neutrophils Absolute Auto 5.4 K/mm3 (1.3-6.7); Neutrophils Percent Auto 77.2 % (45.5-73.1); Platelet Count Result 260 k/mm3 (150-375); Red Blood Count 4.53 M/mm3 (4.2-5.4); Red Cell Distribution Width 20.2 % (11.5-14.5)
[2022-10-01 11:24] LABS: Alanine Aminotransferase 13 U/L (6-35); Albumin Level 3.6 g/dL (3.5-5.1); Alkaline Phosphatase 57 U/L (38-126); Anion Gap 6 mmol/L (8-16); Aspartate Amino Transferase 20 U/L (14-36); Bilirubin,Total 0.8 mg/dL (0.2-1.3); Blood Urea Nitrogen 15 mg/dL (7-17); Calcium 8.5 mg/dL (8.4-10.2); Carbon Dioxide 28 mmol/L (22-30); Chloride 100 mmol/L (98-107); Estimated CRCL calculation 49 ml/min; Estimated Glomerular Filt Rate > 60; Glucose 134 mg/dL (65-110); Potassium 3.6 mmol/L (3.4-5.0); Sodium 134 mmol/L (137-145)
[2022-10-01 14:00] VITALS: BP 170/80; PULSE 57; RESP 18; TEMP 36.9; O2SAT 95
[2022-10-01] MEDS: ONDANSETRON INJ 4 MG/2 ML VIAL IV PUSH (16:12)
--- NOTE | 2022-10-01 16:49 | PM.IMPN ---
Progress Note: A&P Assessment and Plan (1) Acute on chronic anemia: Code(s): D64.9 - Anemia, unspecified Status: Acute Assessment and Plan: Surprisingly she does not seem symptomatic. Stool was reportedly Hemoccult negative on rectal exam done in the ED however she has had increasing abdominal bloating, belching, and GERD Patient on DAPT FOBT negative Continue IV Protonix H&H have remained stable Continue to monitor GI following (2) Gastroesophageal reflux disease: Code(s): K21.9 - Gastro-esophageal reflux disease without esophagitis Status: Acute Assessment and Plan: She has been started on pantoprazole as detailed above. (3) Hypertension: Code(s): I10 - Essential (primary) hypertension Status: Acute Assessment and Plan: Blood pressures have been running in the 190s systolic. She did not take her metoprolol this morning. She goes on to say that her lisinopril was discontinued within the last month as her blood pressures were running a bit low however this may very well need to be resumed. She was given 1 time dose of metoprolol and lisinopril in the ED. Continue Metoprolol and HCTZ Added hydralazine 10 mg b.i.d. due to patient having uncontrolled hypertension. Systolic BP over the last couple days has been between 170 and 195. monitor and adjust (4) Hypothyroidism: Code(s): E03.9 - Hypothyroidism, unspecified Status: Acute Assessment and Plan: Continue levothyroxine and check TSH. (5) Peripheral vascular disease: Code(s): I73.9 - Peripheral vascular disease, unspecified Status: Acute Assessment and Plan: Status post femoral-femoral bypass in March 2022. Continue aspirin and clopidogrel for now. I do not see that she is on a statin. (6) AVN (avascular necrosis of bone): Code(s): M87.00 - Idiopathic aseptic necrosis of unspecified bone Status: Acute Assessment and Plan: MRi showed externsive AVN of the left femoral head with effusion and distal left quadratus tendon tear COntiue pain control ortho following Ortho contacted me today and advised patient be referred to hospital that did her abdominal femoral bypass graft surgery. I contacted the hospital and Dr. Hernadez does not think it is necessary for him to be present during patient's left hip replacement. Will plan on discussing with Ortho how to move forward with treatment of this patient. (7) AAA (abdominal aortic aneurysm): Qualifiers: Presence of rupture: without rupture Qualified Code(s): I71.4 - Abdominal aortic aneurysm, without rupture Code(s): I71.4 - Abdominal aortic aneurysm, without rupture Status: Acute Assessment and Plan: monitor and continue blood pressure control f/u withi cardiology outpatient (8) Seroma: Status: Acute Plan s/p fem-fem bypass iin March, now with seroma monitor Time Spent With Patient Time with patient: Greater than 35 minutes Subjective Date/time seen: 10/01/22 16:49 Interval history: 72-year-old patient with a history of AAA and hypertension. Patient admitted due to fall. Patient found to have avascular necrosis of the left hip. Patient is still in pain but is managing well. Pain control being managed with analgesics. Patient denies chest pain, shortness a breath, dizziness, visual changes, swelling in the lower extremity, nausea, vomiting and fever. Review of Systems Review of Systems: All systems reviewed & are unremarkable except as noted in HPI and below Exam Narrative: GENERAL: Comfortable, no acute distress HENMT: moist mucous membranes EYES: EOM intact b/l NECK: no lymphadenopathy RESPIRATORY: clear to auscultation CARDIO: RRR GI: soft, nontender, bowel sounds present SKIN: no rashes EXTREMITIES: No edema or bruising over the left hip. Although hip is tender to touch. There is a surgical scar were patient had abdominal femoral byp
--- NOTE | 2022-10-01 18:02 | PDONCCN ---
[facility] - Date of Consult Date/Time: 10/01/22 18:02 Requesting Physician: Freddy Bowden MD Primary Care Provider: Kg White MD - Consult Narrative Reason for consult: Microcytic anemia Narrative: Malena Walters is a 72 year old female with history of peripheral vascular disease status post fem-fem bypass. Along with history of GERD peptic ulcer disease hypothyroidism and chronic anemia came into the hospital with left hip pain. She denies any melena hematochezia. She has been eating poorly and does not eat red meat at all. She is complaining of left hip pain. She has been complaining of excessive tiredness and fatigue. She has been taking ibuprofen. CT showed nondisplaced transverse fracture in the anterior cortex of the left femoral head. Labs showed hemoglobin of 6.2. She received 2 units of packed red blood cell. EGD from September 30 showed retained food and secretion in the stomach with delayed emptying otherwise no etiology for anemia. Patient had last colonoscopy done in 2019. Review of Systems - Review of Systems All systems reviewed & are unremarkable except as noted in [facility] and [facility] Medical History: Medical History (Last Updated 09/28/22 @ 20:36 by Elina Borrero PA-C) Abdominal aortic aneurysm Atherosclerotic heart disease of [place] coronary artery without angina pectoris Chronic anemia Diverticulitis Gastroesophageal reflux disease Hemorrhoids Hypertension Hypothyroidism Lichen planus, unspecified Normal colonoscopy Onset Date: 06/2020 Due for repeat colonoscopy in June 2025. 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 Status post femoral-popliteal bypass surgery Onset Date: 03/2022 Family History: Family History (Last Reviewed 09/29/22 @ 01:36 by Samantha Bowden RN) Mother Colon cancer Carcinoma of colon Colon polyp Hypertension Father Emphysema/COPD Sibling Heart disease Diabetes mellitus Hypertension Unknown No problems noted. Daughter Diabetes mellitus Daughter Diabetes mellitus Heart disease Hypertension Grandparent Diabetes mellitus Malignant neoplasm of prostate Sibling Hypertension - Social History Social History: Social History (Last Updated 09/28/22 @ 20:37 by Elina Borrero PA-C) Alcohol Use: Alcohol intake: never Substance Use: Substance use: never Substance use type: does not use Others: Spiritual care concerns: No Agree to blood products: Yes Smoking Status: Smoking status: Former smoker Tobacco type: cigarettes Smoking end date: 10/12/15 Smoking Pack-years: Smoking packs per day: 1 Smoking cigarettes per day: 20.0 Years smoked: 50 Smoking pack-years: 50.00 Social Determinants of Health: Has the Lack of Transportation Kept You From Medical Appointments or From Getting Medications?: No Within the Past 12 Months, Were You Worried Whether Your Food Would Run Out Before You Got Money to Buy More?: Never True What is Your Housing Situation Today?: I Have Housing Are You Worried That in the Next 2 Months, You May Not Have Your Own Housing to Live In?: No Do You Have Trouble Paying Your Heating Or Electricity Bill?: No Do You Have Trouble Paying For Medicines?: No Are You Currently Unemployed and Looking for Work?: No Highest Level of Education Completed: High School Diploma/GED
[2022-10-01] MEDS: hydrALAZINE 10 MG TABLET PO (18:03)
[2022-10-01] MEDS: IRON SUCROSE COMPLEX 500 MG in SODIUM CHLORIDE 0.9% IV 250 ML 78.57 MG IVPB (21:09)
[2022-10-01] MEDS: SENNA/DOCUSATE SODIUM TABLET 2 TAB PO (21:38)
[2022-10-01 22:00] VITALS: BP 183/67; PULSE 58; RESP 18; TEMP 36.2; O2SAT 97
[2022-10-02] MEDS: PANTOPRAZOLE SODIUM IV 40 MG VIAL IV PUSH ×3 (01:30→20:29)
[2022-10-02] MEDS: HYDROcodone/acetaminophen (*CRX) 5-325 MG TABLET 1 TAB PO ×4 (02:29→20:29)
[2022-10-02 06:00] VITALS: BP 171/64; PULSE 54; RESP 16; TEMP 36.4; O2SAT 94
[2022-10-02 06:32] LABS: Hematocrit 33.4 % (37.0-47.0); Hemoglobin 9.6 g/dL (12.0-15.0); Mean Corpuscular HGB Conc 28.7 g/dl (32-36); Mean Corpuscular Hemoglobin 21.8 pg (26-34); Mean Corpuscular Volume 75.9 fl (80-100); Mean Platelet Volume 9.9 fl (7.4-10.4); Platelet Count Result 237 k/mm3 (150-375); Red Cell Distribution Width 19.8 % (11.5-14.5); White Blood Count 4.7 K/mm3 (4.5-10.0)
[2022-10-02 06:48] LABS: Anion Gap 6 mmol/L (8-16); Blood Urea Nitrogen 14 mg/dL (7-17); Calcium 8.4 mg/dL (8.4-10.2); Carbon Dioxide 31 mmol/L (22-30); Chloride 98 mmol/L (98-107); Estimated CRCL calculation 49 ml/min; Estimated Glomerular Filt Rate > 60; Glucose 91 mg/dL (65-110); Potassium 3.3 mmol/L (3.4-5.0); Sodium 135 mmol/L (137-145)
[2022-10-02 09:47] VITALS: PULSE 54
[2022-10-02] MEDS: METOPROLOL SUCCINATE EXT REL 100 MG TABCR PO (09:47)
[2022-10-02] MEDS: hydroCHLOROthiazide 12.5 MG CAPSULE PO (09:48)
[2022-10-02] MEDS: hydrALAZINE 10 MG TABLET PO ×2 (09:52→18:43)
--- NOTE | 2022-10-02 11:40 | WPDGIPROGNO ---
Progress Note: A&P Assessment and Plan (1) Acute on chronic anemia: Code(s): D64.9 - Anemia, unspecified Status: Acute Assessment and Plan: h/h stable after blood transfusio also low b12, patient was evaluated by hematology iv iron plan to repeat colonoscopy as outpatient, last one 2019 (2) AVN (avascular necrosis of bone): Code(s): M87.00 - Idiopathic aseptic necrosis of unspecified bone Status: Acute Assessment and Plan: still with pain (3) Vitamin B 12 deficiency: Code(s): E53.8 - Deficiency of other specified B group vitamins Status: Acute (4) Delayed gastric emptying: Code(s): K30 - Functional dyspepsia Status: Acute Assessment and Plan: found during egd (5) Family history of colon cancer in mother: Code(s): Z80.0 - Family history of malignant neoplasm of digestive organs Status: Acute Subjective Date/time seen: 10/02/22 11:40 Interval history: no changes, patient getting iv iron Review of Systems Review of Systems: All systems reviewed & are unremarkable except as noted in HPI and below Exam Narrative: GENERAL: Comfortable, no acute distress HENMT: moist mucous membranes EYES: EOM intact b/l NECK: no lymphadenopathy RESPIRATORY: clear to auscultation CARDIO: RRR GI: soft, nontender, bowel sounds present SKIN: no rashes EXTREMITIES: hip is tender to touch. There is a surgical scar were patient had abdominal femoral bypass graft surgery psych: good spirits neuro: non focal Objective Data Vital Signs Vital Signs: Vital Signs - 24 hr 10/01/22 14:00 10/01/22 22:00 10/02/22 06:00 Temperature 98.5 F 97.2 F L 97.6 F Pulse Rate 57 L 58 L 54 L Respiratory Rate 18 18 16 Blood Pressure 170/80 H 183/67 H 171/64 H Pulse Oximetry 95 97 94 Oxygen Delivery 10/02/22 09:47 10/02/22 09:38 Temperature Pulse Rate 54 L Respiratory Rate Blood Pressure Pulse Oximetry Oxygen Delivery Room Air Intake/Output Intake/Output: Intake & Output 09/29/22 09/30/22 10/01/22 10/02/22 23:59 23:59 23:59 23:59 Intake Total 1780 1505 780 450 Output Total 3200 1625 2550 1900 Balance -1420 -120 -1770 -1450 Meds/Results Medications: Active Medications Generic Name Dose Route Start Last Admin Trade Name Freq PRN Reason Stop Dose Admin Acetaminophen 650 mg 09/28/22 20:47 09/30/22 07:41 Acetaminophen 325 Mg Tablet PO 650 mg Q6H PRN Administration Mild Pain (1-3) or Fever Acetaminophen 650 mg 10/01/22 01:38 Acetaminophen 650 Mg Suppository RECTAL Q6H PRN Mild Pain (1-3) or Fever Hydrocodone Bitart/Acetaminophen 1 tab 09/29/22 11:54 10/02/22 09:44 Hydrocodone/Acetaminophen (*Crx) 5-325 Mg Tablet PO 1 tab Q4H PRN Administration Pain Rated 6 or Greater Cyanocobalamin 1,000 mcg 10/02/22 09:00 10/02/22 09:51 Cyanocobalamin Inj 1,000 Mcg/Ml Vial IM 10/05/22 08:59 Not Given DAILY LONA Hydralazine HCl 10 mg 10/01/22 17:00 10/02/22 09:52 Hydralazine 10 Mg Tablet PO 10 mg BIDWM LONA Administration Hydrochlorothiazide 12.5 mg 09/29/22 10:00 10/02/22 09:48 Hydrochlorothiazide 12.5 Mg Capsule PO 12.5 mg QAM LONA Administration Metoprolol Succinate 100 mg 09/29/22 10:00 10/02/22 09:47 Metoprolol Succinate Ext Rel 100 Mg Tabcr PO 100 mg DAILY LONA Administration Ondansetron HCl 4 mg 09/28/22 20:47 10/01/22 16:12 Ondansetron Inj 4 Mg/2 Ml Vial IV PUSH 4 mg Q6H PRN Administration Nausea And Vomiting Pantoprazole Sodium 40 mg 09/28/22 21:00 10/02/22 09:46 Pantoprazole Sodium Iv 40 Mg Vial IV PUSH 40 mg Q12HR LONA Administration Senna/Docusate Sodium 2 tab 09/29/22 21:00 10/01/22 21:38 Senna/Docusate Sodium Tablet PO 2 tab HS LONA Administration Radiology Results: ITS Impressions Pelvis CT 09/28/22 09:10 IMPRESSION: 1. Subtle, nondisplaced transverse fracture in the anterior cortex of t
--- NOTE | 2022-10-02 12:50 | PM.DS ---
DS: Admitting Diagnosis Discharge Date 10/02/22 Admitting Diagnosis Left hip pain, anemia DS: Discharge Diagnosis Discharge Diagnosis (1) Acute on chronic anemia: Code(s): D64.9 - Anemia, unspecified Status: Acute (2) Gastroesophageal reflux disease: Code(s): K21.9 - Gastro-esophageal reflux disease without esophagitis Status: Acute (3) Hypertension: Code(s): I10 - Essential (primary) hypertension Status: Acute (4) Hypothyroidism: Code(s): E03.9 - Hypothyroidism, unspecified Status: Acute (5) Peripheral vascular disease: Code(s): I73.9 - Peripheral vascular disease, unspecified Status: Acute (6) AVN (avascular necrosis of bone): Code(s): M87.00 - Idiopathic aseptic necrosis of unspecified bone Status: Acute (7) AAA (abdominal aortic aneurysm): Qualifiers: Presence of rupture: without rupture Qualified Code(s): I71.4 - Abdominal aortic aneurysm, without rupture Code(s): I71.4 - Abdominal aortic aneurysm, without rupture Status: Acute (8) Seroma: Status: Acute DS: Summary Hospital Course Reason for hospitalization: Hip pain, anemia Hospital Course: Seven 2-year-old female with a history of abdominal for moral bypass graft, hypertension, anemia, GERD and hypothyroidism that presented to the ER on 09/28/2022 with chief complaint of left hip pain. Patient said that she had a near fall the week prior but was able to catch herself and stated that she nearly did the splits and that she has had pain in that left hip ever since. Patient has had difficulty ambulating even with a walker. CT of the pelvis revealed nondisplaced transverse fracture in the anterior cortex of the left femoral head and also changes in the abdominal femoral bypass graft surgery with fluid correction surrounding the left portion of the graft. Subsequent CTA of the abdomen and pelvis revealed no abnormal enhancement of the previous CT findings. Orthopedics consulted and followed patient. MRI of left hip revealed AVN with effusion and distal left quadratus tendon tear. Orthopedics recommended that patient be transferred after GI workup to facility that can offer hip replacement and have vascular surgery service available in the event that the graft anastomosis from her from oral to for more a bypass becomes damage. I have spoken with [facility] and [facility] and they have denied transfer of this patient at this time. I have relayed this information back to the patient's orthopedist here at [facility] and he recommended patient being placed in rehab facility until she can be managed as an outpatient and receive hip replacement at [facility] as soon as possible. Patient is understanding of this plan although disappointed that she cannot be transferred. I had talked with the patient and answered all of her questions to the best my ability. Patient found to have a hemoglobin and hematocrit of 6.2 and 23.1% on admission. Patient received 2 units of PRBC. After transfusion patient's hemoglobin has been stable between 9.5 in 10. Patient was not symptomatic at this time. Patient denied black stools or blood in the stool. Patient put on IV Protonix and GI consulted. EGD conducted and was relatively unremarkable it is recommended the patient continue them in at least 5 year intervals. Colonoscopy recommended but under the patient's condition of current active hip fracture and pain colonoscopy will be put off until further notice. Hemoccult negative. Recommended patient be started on ferrous sulfate 325 t.i.d. along with vitamin-C 5 mg daily on discharge as well as follow-up with Hematology on outpatient. Time Spent with Patient Time attestation: Total time spent providing and/or coordinating discharge services: Exam Narrative: GENERAL: Comfortable, no acute distress HENMT: moist mucous membranes EYES: EOM intact b/l NECK: no lymphadeno
[2022-10-02 14:00] VITALS: BP 171/58; PULSE 60; RESP 16; TEMP 36.1; O2SAT 93
[2022-10-02 16:02] LABS: EDCOVIDSCREEN Negative (Negative)
[2022-10-02] MEDS: SENNA/DOCUSATE SODIUM TABLET 2 TAB PO (20:29)
[2022-10-02 22:00] VITALS: BP 150/58; PULSE 60; RESP 14; TEMP 36.5; O2SAT 97
[2022-10-03] MEDS: HYDROcodone/acetaminophen (*CRX) 5-325 MG TABLET 1 TAB PO ×2 (01:38→09:34)
[2022-10-03 06:00] VITALS: BP 160/78; PULSE 55; RESP 16; TEMP 36; O2SAT 94
[2022-10-03] MEDS: hydroCHLOROthiazide 12.5 MG CAPSULE PO (09:40)
[2022-10-03 09:41] VITALS: PULSE 55
[2022-10-03] MEDS: hydrALAZINE 10 MG TABLET PO (09:41)
[2022-10-03] MEDS: METOPROLOL SUCCINATE EXT REL 100 MG TABCR PO (09:41)
[2022-10-03] MEDS: PANTOPRAZOLE SODIUM IV 40 MG VIAL IV PUSH (09:41)
== END 2022-10-03 10:00 | DRG 812 ==
LOC: ANHED 10:11 → ANH3MEDSUR 17:51
PROVIDERS: Internal Medicine; Internal Medicine Critical Care Medicine; Internal Medicine Gastroenterology; Physician Assistant; Admitting Provider Chiropractor; Emergency Provider Emergency Medicine; PCP Family Medicine Adolescent Medicine; Visit Provider Student in an Organized Health Care Education/Training Program
PROC: 0DJ08ZZ Inspection of Upper Intestinal Tract, Via Natural or Artificial Opening Endoscopic (ICD-10-PCS; CPT 43235; principal; 2022-09-30 11:30)
DX: D50.9 Iron deficiency anemia, unspecified (principal); M87.052 Idiopathic aseptic necrosis of left femur; D63.8 Anemia in other chronic diseases classified elsewhere; S76.112A Strain of left quadriceps muscle, fascia and tendon, initial encounter; E03.9 Hypothyroidism, unspecified; E78.00 Pure hypercholesterolemia, unspecified; E53.8 Deficiency of other specified B group vitamins; G89.29 Other chronic pain; I10 Essential (primary) hypertension; I71.40 Abdominal aortic aneurysm, without rupture, unspecified; I65.23 Occlusion and stenosis of bilateral carotid arteries; I25.10 Atherosclerotic heart disease of native coronary artery without angina pectoris; I73.9 Peripheral vascular disease, unspecified; K21.9 Gastro-esophageal reflux disease without esophagitis; K31.89 Other diseases of stomach and duodenum; M54.9 Dorsalgia, unspecified; W19.XXXA Unspecified fall, initial encounter; Z87.11 Personal history of peptic ulcer disease; Z90.49 Acquired absence of other specified parts of digestive tract; Z90.710 Acquired absence of both cervix and uterus; Z87.891 Personal history of nicotine dependence; Z95.820 Peripheral vascular angioplasty status with implants and grafts; Z20.822 Contact with and (suspected) exposure to COVID-19; Z79.82 Long term (current) use of aspirin; Z79.02 Long term (current) use of antithrombotics/antiplatelets
CPT/HCPCS: 36415; 36430; 72192; 73721; 74174; 80048; 80053; 82607; 82728; 82746; 83540; 83550; 84439; 84443; 84480; 85014; 85018; 85025; 85027; 85046; 86850; 86900; 86901; 86920; 87081; 87426; 87636; 96361; 96374; 96375; 96376; 97110; 97161; 97166; 97530; 97535; 99285; A9270; C9113; C9803; G0378; J0360; J1170; J1756; J2270; J2405; J2704; J3010; J7050; J7120; P9016; Q9967

== ENCOUNTER 2022-11-02 10:22 | Emergency (ER) | payer MEDICARE, MEDICAID, SELFPAY ==
--- NOTE | ~2022-11-02 | CT_ITS ---
EXAMINATION: CT abdomen pelvis wo con DATE: 11/02/2022 14:16 INDICATION: Right flank pain. Right lower quadrant abdominal pain. TECHNIQUE: Computed tomography (CT) of the abdomen and pelvis was performed without intravenous contr ast. Automated exposure control and iterative reconstruction technique were employed. The dose-length product was 427.85 mGy-cm. COMPARISON: CT abdomen and pelvis 09/28/2022 FINDINGS: The visualized portions of the lung bases demonstrate mild atelectasis. No pleural effusion . Cardiomegaly is noted. There is a chronic small pericardial effusion. The liver and gallbladder are normal. There are calcifications in the spleen, likely from old injury. The pancreas, adrenal glands , and kidneys are normal. There is no urolithiasis. There is an anastomosis in the sigmoid colon. The re is diverticulosis of the colon without evidence of diverticulitis. There are no dilated loops of b owel. The appendix is normal. A calcified periportal lymph node is consistent with old granulomatous disease. There is no free intraperitoneal fluid. There is a 5.2 cm fusiform aneurysm of infrarenal ao rta. There are stents in the common iliac arteries and external iliac arteries. There is a bypass gra ft from left common femoral artery to right superficial femoral artery. Again seen is a 6.6 x 5.7 cm seroma around the left common femoral artery anastomosis. Again seen is a 4.7 x 3.5 cm seroma around the right superficial femoral artery anastomosis. There is mild thoracolumbar spondylosis. IMPRESSION: 1. 5.2 cm fusiform aneurysm of infrarenal aorta. 2. No urolithiasis. Reviewed, dictated and finalized at location A. [facility] [employer]
[2022-11-02 10:43] VITALS: BP 141/101; PULSE 57; RESP 19; TEMP 36.4; O2SAT 99
--- NOTE | 2022-11-02 12:07 | ED.FEMALEGU ---
HPI - Female Genitourinary General Chief complaint: Urogenital-Female Stated complaint: rt flank pain, currently on abx for uti Time Seen by Provider: 11/02/22 12:03 History of Present Illness HPI Narrative: Patient is a 72-year-old female with a history of PVD, CAD, hypertension presenting with right flank pain. Patient states that she has been in the hospital for the last several months. States that she was diagnosed with a UTI last month and was started on ciprofloxacin. Unfortunately, over the last couple of days she has again had dysuria. Patient states that she initially thought maybe she had a yeast infection so she purchased Monistat. She used 1 dose and experienced severe burning with it. Patient states that she then developed right flank pain that radiates into her right groin. States it fluctuates in intensity from 8-10. Patient also complains that she has sores near her clitoris that are similar to sore she had over the summer. No fevers or chills, chest pain, shortness of breath, cough, vomiting, diarrhea, hematuria. Related Data Home Medications Medication Instructions Recorded Confirmed aspirin 81 mg tablet,delayed 81 mg PO DAILY 10/19/19 09/28/22 release (Adult Aspirin Regimen) clopidogrel 75 mg tablet (Plavix) 75 mg PO DAILY 03/25/22 09/28/22 Euthyrox 75 mcg BYMOUTH DAILY 09/28/22 09/28/22 lorazepam 1 mg tablet 0.5 mg PO HS 09/28/22 09/28/22 pantoprazole 20 mg tablet,delayed 1 mg DAILY 09/28/22 09/28/22 release Allergies Allergy/AdvReac Type Severity Reaction Status Date / Time clindamycin Allergy Severe Rash Verified 09/28/22 08:25 gabapentin Allergy Rash Verified 09/28/22 08:25 baclofen AdvReac Unknown sleepy Verified 09/28/22 08:25 Kcovpgu-YPI-EiL Reductase AdvReac Unknown myalgia Verified 09/28/22 08:25 Inhibitor Review of Systems Review of Systems: All systems reviewed & are unremarkable except as noted in HPI and below PMFSH Past Medical History Medical History Abdominal aortic aneurysm Atherosclerotic heart disease of [place] coronary artery without angina pectoris Chronic anemia Diverticulitis Gastroesophageal reflux disease Hemorrhoids Hypertension Hypothyroidism Lichen planus, unspecified Normal colonoscopy (06/2020) Due for repeat colonoscopy in June 2025. Occlusion and stenosis of bilateral carotid arteries Peptic ulcer Peripheral vascular disease Pneumonia due to 2019 novel coronavirus Pure hypercholesterolemia, unspecified Surgical History Surgical History History of colectomy (2019) Sigmoid colectomy with total hysterectomy for diverticular abscess with colovaginal fistula. 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 Status post femoral-popliteal bypass surgery (03/2022) Family History Family History Mother Colon cancer Carcinoma of colon Colon polyp Hypertension Father Emphysema/COPD Sibling Heart disease Diabetes mellitus Hypertension Unknown No problems noted. Daughter Diabetes mellitus Daughter Diabetes mellitus Heart disease Hypertension Grandparent Diabetes mellitus Malignant neoplasm of prostate Sibling Hypertension Social History Social History Social History: Surrogate decision maker: Valorie Sams, daughter. Code status: Full code Smoking packs per day: 1 Smoking cigarettes per day: 20.0 Years smoked: 50 Smoking pack-years: 50.00 Smoking status: Former smoker Tobacco type: cigarettes Smoking end date: 10/12/15 Alcohol intake: never Substance use: never Substance use type: does not use Lack of Transportation: No Lack of Food: Never True Curre
[2022-11-02 12:51] LABS: Appearance Urine Clear (Clear); Bilirubin Urine Negative (Negative); Blood Urine Trace-intact (Negative); Color Urine Yellow (Yellow); Glucose Urine UA Negative (Negative); Ketones Urine Negative (Negative); Leukocyte Esterase Ur Trace LEU/UL (Negative); Nitrate Urine Negative (Negative); Protein Urine Negative (Negative); Specific Grav Ur <= 1.005 (1.001-1.035); Urobilinogen Urine 0.2 mg/dL (<2.0); pH Urine 5.5 (5.0-9.0)
[2022-11-02 13:01] LABS: Bacteria Urine Trace /hpf; Mucus Urine Rare /lpf; RBC Urine 0-2 /hpf (0-2); Squamous Epithelial Cell Urine Occasional /hpf (Few); Transitional Epi Cells Urine Rare /hpf (None Seen); WBC Urine 0-3 /hpf
[2022-11-02 13:02] LABS: Add Urine Microscopic? YES
[2022-11-02 13:17] LABS: Basophils Percent Auto 0.3 % (0.2-1.2); Eosinophils Absolute Auto 0.1 K/mm3 (0-0.3); Eosinophils Percent Auto 0.8 % (0-4.4); Hematocrit 38.1 % (37.0-47.0); Hemoglobin 11.7 g/dL (12.0-15.0); Immature Granulocyte Absolute 0.02 K/mm3 (0.00-0.031); Immature Granulocyte Percent A 0.3 % (0-0.5); Lymphocytes Percent Auto 12.9 % (18.3-44.2); Mean Corpuscular HGB Conc 30.7 g/dl (32-36); Mean Corpuscular Hemoglobin 24.6 pg (26-34); Mean Corpuscular Volume 80.2 fl (80-100); Mean Platelet Volume 10.4 fl (7.4-10.4); Monocytes Absolute Auto 0.5 K/mm3 (0.1-0.6); Monocytes Percent Auto 8.1 % (2.6-8.5); Neutrophils Absolute Auto 4.8 K/mm3 (1.3-6.7); Neutrophils Percent Auto 77.6 % (45.5-73.1); Platelet Count Result 210 k/mm3 (150-375); Red Blood Count 4.75 M/mm3 (4.2-5.4); Red Cell Distribution Width 23.9 % (11.5-14.5); White Blood Count 6.2 K/mm3 (4.5-10.0)
[2022-11-02 13:27] LABS: Alanine Aminotransferase 14 U/L (6-35); Albumin Level 3.9 g/dL (3.5-5.1); Alkaline Phosphatase 82 U/L (38-126); Anion Gap 10 mmol/L (8-16); Aspartate Amino Transferase 25 U/L (14-36); Bilirubin,Total 0.6 mg/dL (0.2-1.3); Blood Urea Nitrogen 32 mg/dL (7-17); Calcium 9.1 mg/dL (8.4-10.2); Carbon Dioxide 22 mmol/L (22-30); Chloride 108 mmol/L (98-107); Estimated CRCL calculation 15 ml/min; Estimated Glomerular Filt Rate 19; Glucose 99 mg/dL (65-110); Potassium 4.3 mmol/L (3.4-5.0); Sodium 140 mmol/L (137-145)
[2022-11-02 13:37] LABS: Platelet Estimate Adequate (Adequate)
[2022-11-02 13:46] LABS: Anisocytosis 1+ (NORMAL); Ovalocytes 1+ (NORMAL); Schistocytes None Seen (NORMAL); Tear Drop Cells 1+ (NORMAL)
[2022-11-02] MEDS: SODIUM CHLORIDE 0.9% IV 1,000 ML 999 ML IV CONT (13:55)
[2022-11-02] MEDS: MORPHINE SULFATE (*CRX) 2 MG/ML INJ IV PUSH (13:55)
[2022-11-02 16:29] LABS: Influenza A QL RT-PCR Negative (Negative); Influenza B QL RT-PCR Negative (Negative); SARS-CoV-2 RNA PCR Negative
[2022-11-02] MEDS: HYDROmorphone HCL INJ (*CRX) 1 MG/ML SYR 0.5 MG IV PUSH (16:52)
[2022-11-02] MEDS: ONDANSETRON INJ 4 MG/2 ML VIAL IV PUSH (17:26)
--- NOTE | 2022-11-02 18:29 | PC.NURSE ---
called HS transfer line, no bed at this time put on wait list.
--- NOTE | 2022-11-02 19:32 | PC.NURSE ---
1909 Assumed pt care from Maria C Carr RN
[2022-11-02 20:13] VITALS: BP 229/72; PULSE 44; RESP 16; O2SAT 100
[2022-11-02 20:14] VITALS: BP 229/72; PULSE 44; RESP 14; O2SAT 95
[2022-11-02 21:02] VITALS: BP 249/90; PULSE 49; RESP 14
--- NOTE | 2022-11-02 21:27 | PC.NURSE ---
[address] Carlos on pt HTN, Hydralazine ordred. Went into room to give meds and pt disclosed to me that she took 0.1 mg of Clonidine approx [address] Carlos and hydralazine was discontinued per order. Informed pt that if her BP is still elevated in 45 minutes to take another 0.[address] Carlos's orders.
== END 2022-11-02 21:50 | disposition short-term general hospital (02) ==
PROVIDERS: Emergency Provider Emergency Medicine; PCP Family Medicine Adolescent Medicine
DX: I71.43 Infrarenal abdominal aortic aneurysm, without rupture (principal); I10 Essential (primary) hypertension; N17.9 Acute kidney failure, unspecified; N90.4 Leukoplakia of vulva; I25.10 Atherosclerotic heart disease of native coronary artery without angina pectoris; I65.23 Occlusion and stenosis of bilateral carotid arteries; I73.9 Peripheral vascular disease, unspecified; E78.00 Pure hypercholesterolemia, unspecified; D64.9 Anemia, unspecified; E03.9 Hypothyroidism, unspecified; K21.9 Gastro-esophageal reflux disease without esophagitis; Z95.820 Peripheral vascular angioplasty status with implants and grafts; Z90.710 Acquired absence of both cervix and uterus; Z90.49 Acquired absence of other specified parts of digestive tract; Z87.891 Personal history of nicotine dependence; Z86.16 Personal history of COVID-19; Z87.01 Personal history of pneumonia (recurrent); Z87.11 Personal history of peptic ulcer disease; Z79.82 Long term (current) use of aspirin; Z79.02 Long term (current) use of antithrombotics/antiplatelets
CPT/HCPCS: 36415; 74176; 80053; 81001; 85025; 87636; 96365; 96375; 99285; J0131; J1170; J2270; J2405; J7030

== ENCOUNTER 2023-02-05 15:14 | Emergency (ER) | payer MEDICARE, MEDICAID, SELFPAY ==
[2023-02-05 15:32] VITALS: BP 129/47; PULSE 55; RESP 16; TEMP 36.3; O2SAT 100
--- NOTE | 2023-02-05 15:41 | PC.NURSE ---
pt took BP with her cuff in triage and BP 115/53. Pt reports she does not want to be seen now and will f/u with PCP or come back to ED if she needs to come back.
== END 2023-02-05 16:30 | disposition left against medical advice (07) ==
PROVIDERS: PCP Family Medicine Adolescent Medicine
DX: I10 Essential (primary) hypertension (principal)
CPT/HCPCS: 99199

== ENCOUNTER → 2023-05-22 12:59 | Outpatient (CLI) | payer MEDICARE, MEDICAID, SELFPAY ==
--- NOTE | ~2023-05-22 | CT_ITS ---
EXAMINATION: CT lumbar spine wo con DATE: 05/22/2023 13:19 INDICATION: Severe bilateral neurogenic claudication. TECHNIQUE: Computed tomography (CT) of the lumbar spine was performed without intravenous contrast. A utomated exposure control and iterative reconstruction technique were employed. The dose-length produ ct was 581.58 mGy-cm. COMPARISON: CT abdomen and pelvis 09/28/2022 FINDINGS: There is a 4.6 cm fusiform aneurysm of infrarenal aorta with partially visualized stent gra ft. Bone alignment is normal. Vertebral body heights and intervertebral disc heights are normal. The following disc levels are specifically discussed: L1-L2: The disc does not extend beyond the endplate margin. There is mild bilateral facet joint osteo arthritis. There is no neural foraminal stenosis. There is no central canal stenosis. L2-L3: The disc is bulging. There is mild bilateral facet joint osteoarthritis. There is mild bilater al neural foraminal stenosis. There is no central canal stenosis. L3-L4: The disc is bulging. There is mild bilateral facet joint osteoarthritis. There is mild bilater al neural foraminal stenosis. There is mild central canal stenosis. L4-L5: The disc is bulging. There is severe bilateral facet joint osteoarthritis. There is mild bilat eral neural foraminal stenosis. There is mild central canal stenosis. L5-S1: The disc is bulging. There is severe bilateral facet joint osteoarthritis. There is no neural foraminal stenosis. There is mild central canal stenosis. IMPRESSION: 1. Mild lumbar spondylosis. Reviewed, dictated and finalized at location A. IMPRESSION: 1. Mild lumbar spondylosis.
--- NOTE | ~2023-05-22 | XR_ITS ---
EXAM: XR knee RT 3V DATE: 05/22/2023 13:58 HISTORY: Pain and some paresthesias around right patella . COMPARISON: None available. FINDINGS: Normal mineralization. No fracture or dislocation. No lytic or blastic lesion. Mild medial joint space narrowing. Mild tricompartmental osteophytosis. No erosion or periosteal change. Soft ti ssues within normal limits. IMPRESSION: Mild tricompartmental right knee osteoarthritis. Reviewed, dictated and finalized at location K.
== END ==
PROVIDERS: PCP Family Medicine Adolescent Medicine; Visit Provider Family Medicine Adolescent Medicine
DX: M17.11 Unilateral primary osteoarthritis, right knee (principal); M47.816 Spondylosis without myelopathy or radiculopathy, lumbar region; M48.062 Spinal stenosis, lumbar region with neurogenic claudication
CPT/HCPCS: 72131; 73562

== ENCOUNTER 2024-04-25 13:47 | Outpatient (CLI) | payer MEDICARE, MEDICAID, SELFPAY ==
--- NOTE | ~2024-04-25 | XR_ITS ---
EXAMINATION: XR ribs LT 2V Exam Date/Time: 04/25/2024 13:52 CDT HISTORY: R07.89 - Other chest pain Comparison: 03/25/2021; [facility] chest 10/21/2020. RESULT: Lines, tubes, and devices: Partially visualized aortic endograft. Lungs and pleura: Scattered senescent/interstitial opacities. Cardiothymic silhouette: Stable. Other: No acute osseous or upper abdominal finding. Chronic appearing left lateral sixth and seventh rib fractures. IMPRESSION: No acute cardiopulmonary process. No acute osseous finding in the left ribs. Reviewed, dictated and finalized at location K.
== END 2024-04-25 13:48 ==
PROVIDERS: PCP Family Medicine Adolescent Medicine; Visit Provider Family Medicine Adolescent Medicine
DX: R07.89 Other chest pain (principal)
CPT/HCPCS: 71100

== ENCOUNTER 2024-08-01 14:18 | Outpatient (CLI) | payer MEDICARE, MEDICAID, SELFPAY ==
--- NOTE | ~2024-08-01 | CT_ITS ---
EXAMINATION:CT diagnostic chest w con DATE: 08/01/2024 15:25 INDICATION: Reticular nodular opacification in the right lung upper lobe. TECHNIQUE: Computed tomography (CT) of the chest was performed with 75 mL Omnipaque 350 intravenous c ontrast. Automated exposure control and iterative reconstruction technique were employed. The dose-le ngth product (DLP) was 233.93 mGy-cm. COMPARISON: Chest CT 04/04/2024, 10/21/2020 FINDINGS: There are improved minimal groundglass opacities in right upper lobe, likely scarring. Ther e is a 3 mm nodule in right upper lobe, likely benign. There is a 4 mm pleural-based nodule in right lower lobe, likely benign. There is an 11 mm nodule in left lower lobe abutting the aorta. There is m ild atelectasis bilaterally. No pleural effusion. The heart size is normal. There are coronary artery calcifications. There is a small pericardial effusion. 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 Partially visualized is an abdom inal aortic aneurysm with stent graft. There is cortical thinning in the kidneys. There is mild thora cic spondylosis. IMPRESSION: 1. 11 mm nodule in left lung lower lobe suspicious for primary bronchogenic carcinoma. The proximity to the aorta makes this a high risk percutaneous biopsy. Consider PET/CT. Reviewed, dictated and finalized at location A. IMPRESSION: 1. 11 mm nodule in left lung lower lobe suspicious for primary bronchogenic car cinoma. The proximity to the aorta makes this a high risk percutaneous biopsy. Consider PET/CT.
[2024-08-01 15:13] LABS: Estimated Glomerular Filt Rate 37
== END 2024-08-01 14:19 | disposition home or self-care (01) ==
PROVIDERS: PCP Family Medicine Adolescent Medicine; Visit Provider Nurse Practitioner Family
DX: R91.1 Solitary pulmonary nodule (principal)
CPT/HCPCS: 71260; Q9967